=== PATIENT | female | born 2000 | race Caucasian/White ===

== ENCOUNTER 2019-11-12 11:16 | Outpatient (REF) | payer BC, SELFPAY ==
--- NOTE | 2019-11-12 10:35 | PAPFT_PTH ---
PATIENT: Huma Rodriguez LOC: [facility] U#:[id number] AGE/SX: 19/F ROOM: RE11/12/[address]: Daxa Russo RN : 2000 BED: DIS: 11/12/2019 SPEC #: [id number] RECD: 11/12/19 13:09 STATUS: MERVAT REArnaldo #: [id number] RUSTY: 11/12/19 10:[address]: Daxa Russo DEPT: [facility] Cytology RECD BY: Veronika Quijano ENTERED: 11/12/19 13:09 SP TYPE: PAPFT MATEUSZ DR: None Tissues: 1 - CX/ENDOCX FOR PAP SMEARS Procedures: PAP THIN PREP/UVM Screening HPV DNA PROBE Comments: [id number]
[2019-11-12 13:35] LABS: *AMPHETAMINES SCREEN URINE Negative (Negative); *BARBITURATES SCREEN URINE Negative (Negative); *BENZODIAZEPINES SCREEN URINE Negative (Negative); Cannabinoids THC Negative (Negative); Cocaine Screen,Urine Negative (Negative); METHADONE URINE SCREEN Negative (Negative); OPIATES URINE SCREEN Negative (Negative); Tricyclic Antidepressants Negative (Negative)
[2019-11-13 15:31] LABS: Chlamydia Result Negative (Negative); GC Result Negative (Negative)
[2019-11-16 11:58] LABS: Buprenorphine Negative; Norbuprenorphine Negative
== END 2019-11-12 11:36 ==
LOC: LBN 11:16
PROVIDERS: Visit Provider Advanced Practice Midwife
DX: R87.610 Atypical squamous cells of undetermined significance on cytologic smear of cervix (ASC-US) (principal); R87.810 Cervical high risk human papillomavirus (HPV) DNA test positive; Z34.91 Encounter for supervision of normal pregnancy, unspecified, first trimester
CPT/HCPCS: 80307; 87491; 87591; 88142; 87086; 87624

== ENCOUNTER 2019-11-14 05:29 | Outpatient (CLI) | payer BC, SELFPAY ==
[2019-11-14 08:39] LABS: Abs Immature Grans 0.02 10^3/uL (0.0-0.06); Absolute Basophil Count 0.01 10^3/uL (0.0-0.2); Absolute Eosinophil Count 0.15 10^3/uL (0.0-0.7); Absolute Lymphocyte Count 2.05 10^3/uL (1.2-3.4); Absolute Neutrophil Count 4.91 10^3/uL (1.2-6.7); Basophils % 0.1; HCT 35.1 % (36.0-46.0); HGB 12.4 g/dL (11.2-15.7); Immature Grans % 0.3; Lymphocytes % 26.8; MCHC 35.3 % (32.0-36.0); MPV 10.3 fL (8.0-11.0); Monocytes % 6.5; Neutrophils % 64.3; Nucleated RBC 0 %; Platelet Count 221 10^3/uL (130-400); RBC 4.13 10^6/uL (3.93-5.22); RDW 12.5 % (11.7-14.6); RDW-SD 38.2 fL; WBC 7.64 10^3/uL (4.4-10.8)
[2019-11-15 09:56] LABS: Hepatitis B Surface Ag Negative (Negative)
[2019-11-15 10:47] LABS: Varicella IgG Antibody Positive (See Note)
[2019-11-15 10:50] LABS: Rubella IgG Ab (UVM) Positive (See Note)
[2019-11-15 10:53] LABS: HIV-1/2 Ag & Ab Screen Negative (Negative)
[2019-11-15 11:10] LABS: Hepatitis C Ab w Rflx HCV PCR Negative (Negative)
[2019-11-16 14:30] LABS: Syphilis Total Ab w/Reflex Nonreactive (Nonreactive)
== END 2019-11-14 05:49 ==
PROVIDERS: Visit Provider Advanced Practice Midwife
DX: Z34.91 Encounter for supervision of normal pregnancy, unspecified, first trimester (principal); Z11.4 Encounter for screening for human immunodeficiency virus [HIV]; Z11.59 Encounter for screening for other viral diseases; Z01.84 Encounter for antibody response examination
CPT/HCPCS: 86787; 86803; 86850; 86900; 86901; 87340; 87389; 84443; 85025; 86762; 86780

== ENCOUNTER 2019-12-24 00:45 | Outpatient (CLI) | payer BC, SELFPAY ==
--- NOTE | 2019-12-24 07:00 | DI.US_ITS ---
EXAM: US OB 2-3 TRIMESTER W MOD CLINICAL HISTORY: routine pnc,Z34.90 TECHNIQUE: Ultrasound performed using standard protocol. COMPARISON: No exams were available for comparison FINDINGS: Ob ultrasound was performed utilizing 2nd trimester protocol. biometry is consistent with gest ational age of 18 weeks 2 days and an EDC of May 24, 2020. Placenta is posterior with no placenta previa. There is visually a normal quantity of amniotic fluid. anomaly screen is within normal limits as per the attached checklist. Please note that the fac ial structures were not well visualized and the patient will return for additional scanning. heart rate, 152 BPM. IMPRESSION: DATA REPOSITORY:
== END 2019-12-24 01:05 ==
PROVIDERS: Visit Provider Advanced Practice Midwife
DX: Z34.92 Encounter for supervision of normal pregnancy, unspecified, second trimester (principal)
CPT/HCPCS: 76805

== ENCOUNTER 2020-01-15 00:52 | Outpatient (CLI) | payer BC, SELFPAY ==
--- NOTE | 2020-01-15 | DI.US_ITS ---
EXAM: US OB F/U FACIAL/LVOT/RVOT CLINICAL HISTORY: F/U PREV,TO VIEW FACIAL STRUCTURES TECHNIQUE: Ultrasound performed using standard protocol. COMPARISON: US US OB 2-3 TRIMESTER W MOD from 12/24/2019 FINDINGS: Limited Ob ultrasound was performed to follow prior 2nd trimester ultrasound on which nose and lips w ere not well visualized. On today's examination nose and lips are visualized and unremarkable in appearance. Question had bee n raised of a small left choroid plexus cyst on prior examination, and this is not seen on today's ex amination. heart rate was 149 BPM. Again, there is a normal quantity of amniotic fluid, and placenta is posterior with no placenta previ a. IMPRESSION: DATA REPOSITORY:
== END 2020-01-15 01:12 ==
PROVIDERS: Visit Provider Advanced Practice Midwife
DX: Z34.92 Encounter for supervision of normal pregnancy, unspecified, second trimester (principal); O28.3 Abnormal ultrasonic finding on antenatal screening of mother
CPT/HCPCS: 76815

== ENCOUNTER 2020-03-10 05:11 | Outpatient (CLI) | payer SELFPAY ==
[2020-03-10 09:39] LABS: HCT 33.7 % (36.0-46.0); HGB 11.5 g/dL (11.2-15.7); MCH 29.9 pg (27.0-33.0); MCHC 34.1 % (32.0-36.0); MCV 87.8 fL (80-95); Platelet Count 213 10^3/uL (130-400); RBC 3.84 10^6/uL (3.93-5.22); RDW 12.8 % (11.7-14.6); RDW-SD 40.4 fL; WBC 7.59 10^3/uL (4.4-10.8)
[2020-03-10 09:46] LABS: Glucose,1 Hr (Glucola) 121 mg/dL (80-140)
== END 2020-03-10 05:31 ==
PROVIDERS: Visit Provider Advanced Practice Midwife
DX: Z34.93 Encounter for supervision of normal pregnancy, unspecified, third trimester (principal); Z3A.28 28 weeks gestation of pregnancy
CPT/HCPCS: 36415; 82950; 85027

== ENCOUNTER 2020-04-29 13:21 | Outpatient (REF) | payer BC, SELFPAY ==
[2020-04-29 14:46] LABS: *AMPHETAMINES SCREEN URINE Negative (Negative); *BARBITURATES SCREEN URINE Negative (Negative); *BENZODIAZEPINES SCREEN URINE Negative (Negative); Cannabinoids THC Negative (Negative); Cocaine Screen,Urine Negative (Negative); METHADONE URINE SCREEN Negative (Negative); OPIATES URINE SCREEN Negative (Negative)
[2020-04-29 14:51] LABS: Tricyclic Antidepressants Negative (Negative)
[2020-05-06 13:19] LABS: Buprenorphine Negative ng/mL (Cutoff: 5.0); Norbuprenorphine Negative ng/mL (Cutoff: 2.5)
== END 2020-04-29 13:22 | disposition home or self-care (01) ==
LOC: LBN 13:21
PROVIDERS: Visit Provider Advanced Practice Midwife
DX: Z34.93 Encounter for supervision of normal pregnancy, unspecified, third trimester (principal); Z36.85 Encounter for antenatal screening for Streptococcus B; Z3A.36 36 weeks gestation of pregnancy
CPT/HCPCS: 80307; 87081

== ENCOUNTER 2020-06-04 06:56 | Inpatient (IN) | payer BC, SELFPAY ==
[2020-06-04] VITALS (18 sets, daily range): BP systolic 128–160; BP diastolic 74–104; PULSE 80–125; RESP 12–18; TEMP 36.7–37.9; O2SAT 97
--- NOTE | 2020-06-04 08:10 | W.PM.OBHPL1 ---
Date of service: 06/04/20 Time of Service: 08:10 Assessment and Plan Assessment and plan (1) Spontaneous onset of labor: Status: Acute Assessment and plan: Admit to Center. Comfort measures. Huma had planned to use the tub for comfort. Report to Bean walters who will be assuming her care at 0800. Covid- 19 test. Anticipate . OB-HPI Labor/Delivery History of Present Illness Reason for Visit: RULE OUT LABOR Chief Complaint: Uterine Contractions. TIKI Calculator Estimated Delivery Date Method Current WG Current Estimate 05/28/20 Ultrasound #1 41w 0d Other Estimates 05/25/20 LMP (Uncertain) 41w 3d Comments: Huma reports regular contractions all night. They became stronger at 0600 and she presents in active labor. SVE by RN. History of Present Expected Delivery Route/Plan - CNM FOB/boyfriend - Ben Covarrubias (his first child) BB Aditya, no circ Would like to use the tub for comfort. GBS negative Specific Issues/Plan 1. Declines all optional screening tests, declination signed. 2. pap ASCUS HPV + repeat pap pp.al 3. Limited facial views by US - repeat US scheduled- normal face views/no evidence of CP cyst PFSH Medical History (Updated 06/04/20 @ 08:12 by Betzaida Ibarra CNM) ASCUS with positive high risk HPV Family History Mother No problems noted. Father No problems noted. Other Heart disease Grandparent Hyperlipidemia Social History (Updated 11/12/19 @ 09:37 by Daxa Russo CNM) Smoking/Tobacco Use Status: Never Second Hand Exposure: Yes (reviewed fact smoking outside is no longer a safe practice to deter risks.) Counseling given: provider counseling Smoking risk assessment performed?: Yes Female Reproductive History Menstrual control method: none History History 1 Para 0 Hx # Term Pregnancies 0 Multiple births 0 Hx # Pregnancies 0 Ectopic pregnancies 0 AB induced 0 Hx Number of Living Children 0 AB spontaneous 0 Meds Allergies and Home Medications Allergies Allergy/AdvReac Type Severity Reaction Status Date / Time No Known Allergies Allergy Unverified 05/28/20 08:54 Home Medications Medication Instructions Recorded Confirmed Type prenat.vits,niesha,dpj-bbau-kjxmp 1 tab PO DAILY 09/26/19 01/16/20 History Exam Physical Exam Vital signs: Temp Pulse Resp BP 98.6 F 98 H 12 132/100 H 06/04/20 07:16 06/04/20 07:16 06/04/20 07:16 06/04/20 07:16 Vital Signs Reviewed: Yes Detailed Labor and Delivery Exam Dilation: 4 Effacement (%): 90 Nguyen Score: Cervical Points Exam 0 1 2 3 Dilation Closed 1-2cm 3-4 cm 5-6cm Effacement 0-30% 40-50% 60-70% 80% Consistency Firm Medium Soft Station -3 -2 -1,0 +1,+2 Position Posterior Mid Anterior Amniotic Membrane Status: Intact Contraction Intensity: Mild/Moderate Fetus A Heart Rate Baseline: 120 Monitor Accelerations: 15 X 15 Monitor Decelerations: None Variability: Moderate (6-25 BPM) Presentation: Cephalic Categories: Category I Risk Assessment Risk for Shoulder Dystocia Historical/Initial OB: NEGATIVE FOR: Pelvic Abnormality, Pre- BMI>30, Previous Shoulder Dystocia or Previous Macrosomia 40 Weeks: POSTIVE FOR: Post Dates; NEGATIVE FOR: EFW> 4500 gms or Maternal Weight Gain >40lb Increased Risk?: No Delivery Plan @ 36wks: spont labor, Delivery Plan @ 40 wks: spont labor, , 41 wk appt made Risk for Pre-Eclampsia Date Initiated/Initials: 11/12/19 al Yes, if one or more: NEGATIVE FOR: Hx Pre-E/Gest HTN, Chronic HTN, Multiple Gestation, Pre-gestational DM, Renal Disease, Systemic Lupus or APA Syndrome Yes, if 2 or more: POSITIVE FOR: Nulliparity; NEGATIVE FOR: Age>= 35 yrs, >10yr btwn pregnancies, BMI>30, ethinicty, Mother/Sister w/ Pre-E or Previous IUGR Risk for Post- Hemorrhage Initial: NEGATIVE FOR: Multiple Gestation, Previous PPH, Known Clotting Deficiency, Grand Multiparity or Anticoagulation Risks Reviewed Risks Reviewed Upon Admission: Yes
[2020-06-04 08:41] LABS: HCT 32.2 % (36.0-46.0); HGB 11.1 g/dL (11.2-15.7); MCH 28.5 pg (27.0-33.0); MCHC 34.5 % (32.0-36.0); MCV 82.8 fL (80-95); MPV 11.3 fL (8.0-11.0); Platelet Count 207 10^3/uL (130-400); RBC 3.89 10^6/uL (3.93-5.22); RDW 13.2 % (11.7-14.6); RDW-SD 38.9 fL; WBC 12.26 10^3/uL (4.4-10.8)
--- NOTE | 2020-06-04 10:37 | W.PM.OBNL1 ---
Date of service: 06/04/20 Time of Service: 10:37 Pelvic Exam Dilation: 7 Effacement (%): 100 station: -2 Position: TYLER Cervix Position: mid Consistency: soft Contractions Monitor Mode: Palpation Contraction Frequency(min): every 2-4 minutes Intensity: Moderate/Strong Fetus A Monitor: Doppler Heart Rate Baseline: 135 Presentation: Cephalic FHR Rhythm: Regular Accelerations: Present Decelerations: None Amniotic Membrane Status: Intact Assessment and Plan Assessment and plan (1) Spontaneous onset of labor: Status: Acute Assessment and plan: A: primipara @ 41 wks, spont labor, active GBS neg, low risk Elevated BP noted with onset of labor P: Will draw pre-eclampsia labs with urine prot/creat ratio Monitor BP and review results with Dr. Renteria EFM tracing to assess category Anticipate (2) 41 weeks gestation of : Status: Acute (3) Elevated BP without diagnosis of hypertension: Status: Acute Objective Abnormal lab results 06/04/20 Range/Units 08:29 WBC 12.26 H (4.4-10.8) 10^3/uL RBC 3.89 L (3.93-5.22) 10^6/uL Hgb 11.1 L (11.2-15.7) g/dL Hct 32.2 L (36.0-46.0) % MPV 11.3 H (8.0-11.0) fL Temp Pulse Resp BP 99.1 F 98 H 12 148/101 H 06/04/20 10:31 06/04/20 07:16 06/04/20 07:16 06/04/20 10:31 Laboratory Results WBC 12.26 10^3/uL (4.4-10.8) H 06/04/20 08:29 RBC 3.89 10^6/uL (3.93-5.22) L 06/04/20 08:29 Hgb 11.1 g/dL (11.2-15.7) L 06/04/20 08:29 Hct 32.2 % (36.0-46.0) L 06/04/20 08:29 MCV 82.8 fL (80-95) 06/04/20 08:29 MCH 28.5 pg (27.0-33.0) 06/04/20 08:29 MCHC 34.5 % (32.0-36.0) 06/04/20 08: RDW 13.2 % (11.7-14.6) 06/04/20 08:29 Plt Count 207 10^3/uL (130-400) 06/04/20 08:29 MPV 11.3 fL (8.0-11.0) H 06/04/20 08:29 Patient ABO/Rh O Positive 06/04/20 08:29 Antibody Screen Negative 06/04/20 08:29 Vital Signs Reviewed: Yes Notable Details: Admission BP elevated 132/100, repeat 3 hrs later 148/101 Objective Narrative Objective Narrative: Pt appears to be coping well with contractions, supported by FOB Has ambulated and generally prefers to labor in the soaking tub No hx elevated BP during care, elevated BP noted this morning x2 Category 1 tracing upon admission, intermittent auscultation per protocol since then Afebrile, benign AP course Admission labs nml, COVID swab pending EFW 3500 gms Subjective Interval history since last seen: Contractions are frequent and most the pain is in her back, feels best when soaking in labor tub.
[2020-06-04 11:03] LABS: COVID-19 PCR Negative (Negative); Source Nasal/Nares
[2020-06-04 11:16] LABS: ALT 13 U/L (14-59); AST 14 U/L (15-37); Albumin 2.9 g/dL (3.4-5.0); Alkaline Phosphatase 228 U/L (46-116); Anion Gap 11.6 mmol/L (3-11); BUN 10 mg/dL (7-18); Bilirubin, Total 0.2 mg/dL (0.2-1.0); CO2 22.4 mmol/L (21.0-32.0); CREATININE 0.8 mg/dL (0.55-1.02); Calcium 8.9 mg/dL (8.5-10.1); Chloride 102 mmol/L (98-107); Glucose 87 mg/dL (74-106); Potassium 4.2 mmol/L (3.5-5.1); Sodium 136 mmol/L (136-145); Total Protein 6.2 g/dL (6.4-8.2); Uric Acid 7.1 mg/dL (2.6-6.0)
[2020-06-04 12:40] LABS: PROTEIN 112.4 mg/dL
[2020-06-04 12:48] LABS: COMMENT (LAB VIEW ONLY) 246.42 mg/dL; Prot/Crea Ur Ratio 0.45
--- NOTE | 2020-06-04 13:31 | PGE_ITS ---
Date of service: 06/04/20 Time of Service: 13:31 Contractions Monitor Mode: Palpation Contraction Frequency(min): every 2-4 minutes Intensity: Moderate/Strong Fetus A Monitor: Doppler Heart Rate Baseline: 135 Presentation: Cephalic FHR Rhythm: Regular Accelerations: Present Decelerations: None Assessment and Plan Assessment and plan (1) Pre-eclampsia affecting childbirth: Status: Acute (2) Spontaneous onset of labor: Status: Acute Assessment and plan: A: pre-eclampsia without severe features, intrapartum onset primipara in active labor, postpdates P: Discussed lab results and pt status with Dr. Renteria Will initiate IV access, EFM Anticipate (3) 41 weeks gestation of : Status: Acute Objective Abnormal lab results 06/04/20 06/04/20 Range/Units 08:29 08:29 WBC 12.26 H (4.4-10.8) 10^3/uL RBC 3.89 L (3.93-5.22) 10^6/uL Hgb 11.1 L (11.2-15.7) g/dL Hct 32.2 L (36.0-46.0) % MPV 11.3 H (8.0-11.0) fL Anion Gap 11.6 H (3-11) mmol/L Uric Acid 7.1 H (2.6-6.0) mg/dL AST 14 L (15-37) U/L ALT 13 L (14-59) U/L Alkaline Phosphatase 228 H (46-116) U/L Total Protein 6.2 L (6.4-8.2) g/dL Albumin 2.9 L (3.4-5.0) g/dL Temp Pulse Resp BP 98.1 F 90 12 148/84 H 06/04/20 12:13 06/04/20 10:57 06/04/20 07:16 06/04/20 12:13 Laboratory Results WBC 12.26 10^3/uL (4.4-10.8) H 06/04/20 08:29 RBC 3.89 10^6/uL (3.93-5.22) L 06/04/20 08:29 Hgb 11.1 g/dL (11.2-15.7) L 06/04/20 08:29 Hct 32.2 % (36.0-46.0) L 06/04/20 08:29 MCV 82.8 fL (80-95) 06/04/20 08: MCH 28.5 pg (27.0-33.0) 06/04/20 08: MCHC 34.5 % (32.0-36.0) 06/04/20 08:29 RDW 13.2 % (11.7-14.6) 06/04/20 08:29 Plt Count 207 10^3/uL (130-400) 06/04/20 08:29 MPV 11.3 fL (8.0-11.0) H 06/04/20 08:29 Sodium 136 mmol/L (136-145) 06/04/20 08:29 Potassium 4.2 mmol/L (3.5-5.1) 06/04/20 08: Chloride 102 mmol/L (98-107) 06/04/20 08:29 Carbon Dioxide 22.4 mmol/L (21.0-32.0) 06/04/20 08:29 Anion Gap 11.6 mmol/L (3-11) H 06/04/20 08:29 BUN 10 mg/dL (7-18) 06/04/20 08:29 Creatinine 0.8 mg/dL (0.55-1.02) 06/04/20 08:29 Estimated GFR/1.73 m2 >= 60.00 (mL/min/1.73m2) 06/04/20 08:29 Glucose 87 mg/dL (74-106) 06/04/20 08:29 Uric Acid 7.1 mg/dL (2.6-6.0) H 06/04/20 08:29 Calcium 8.9 mg/dL (8.5-10.1) 06/04/20 08:29 Total Bilirubin 0.2 mg/dL (0.2-1.0) 06/04/20 08:29 AST 14 U/L (15-37) L 06/04/20 08:29 ALT 13 U/L (14-59) L 06/04/20 08:29 Alkaline Phosphatase 228 U/L (46-116) H 06/04/20 08:29 Total Protein 6.2 g/dL (6.4-8.2) L 06/04/20 08:29 Albumin 2.9 g/dL (3.4-5.0) L 06/04/20 08:29 Ur Random Creatinine 246.42 mg/dL 06/04/20 11:45 U Random Total Protein 112.4 mg/dL 06/04/20 11:45 U [place] Prot/Creat Ratio 0.45 06/04/20 11:45 COVID-19 Source Nasal/nares 06/04/20 07:15 SARS-CoV-2 (PCR) Negative (Negative) 06/04/20 07:15 Patient ABO/Rh O Positive 06/04/20 08:29 Antibody Screen Negative 06/04/20 08:29 Vital Signs Reviewed: Yes Notable Details: see below Objective Narrative Objective Narrative: BP elevations remain consistently in mild range Pre-e lab results: LFT's are low/nml, plts 207, serum creat 0.8, uric acid 7.1 and prot/creat ratio at 0.45 Pt denies DAMON or RUQ pain, Pt has remained in tub, intermittent auscultation resumed after category 1 tracing verified @ noon FOB providing effective support, pt declines use of nitrous or narcotic analgesia Subjective Interval history since last seen: Reporting increased sensation of pelvic pressure at peak of contractions
[2020-06-04] MEDS: Normal Saline Flush 10 ML SYR IVP (14:03)
[2020-06-04] MEDS: Oxytocin/Normal Saline 30 UNITS/500 ML BAG 95 UNITS IV (14:20)
--- NOTE | 2020-06-04 14:32 | W.PM.OBNL1 ---
Date of service: 06/04/20 Time of Service: 14:32 Pelvic Exam Dilation: 9 station: 0 Vaginal Exam Presentation: Vertex Contractions Monitor Mode: External Contraction Frequency(min): e devon 3-4 minutes, sometimes doubles Contraction Duration(sec): 60-90 seconds Intensity: Strong Fetus A Monitor: External (US) Heart Rate Baseline: 125 Presentation: Vertex Variability: Moderate (6-25 BPM) Categories: Category I Accelerations: 15 X 15 Decelerations: None Amniotic Membrane Status: Ruptured (@ 1355) Rupture Method: Artifical Amniotic Fluid: Clear Date of Membrane Rupture: 06/04/20 Time of Membrane Rupture: 13:55 Assessment and Plan Assessment and plan (1) Pre-eclampsia affecting childbirth: Status: Acute (2) 41 weeks gestation of : Status: Acute (3) Spontaneous onset of labor: Status: Acute Assessment and plan: A: Primipara, pre-e without severe features Transition stage of active labor P: Anticipate precautions in place for increased risk of PPH Objective Vital Signs Reviewed: Yes Objective Narrative Objective Narrative: BP stable, IV access placed by RN in left hand Pt involuntarily shaking and occasionally pushing lightly AROM at 8/-1 of clear fluid and palpable descent of head to 0/+1 station Pt positioned LLP with support between knees, encouraged to rest between contractions Coping very well with pains, feeling rectal pressure Pt is advised that elevated BP requires more monitoring then can be done in water EFM tracing for category 1 tracing Subjective Interval history since last seen: Involuntary urges to bear down, feeling very shakey, wishes she could return to the tub but expresses understanding that her BP status makes birthing in the tub potentially unsafe. Results Hemoglobin/Hematocrit: Hgb 11.1 g/dL (11.2-15.7) L 06/04/20 08:29 Hct 32.2 % (36.0-46.0) L 06/04/20 08:29 Abnormal Lab Findings: Abnormal Labs 06/04/20 06/04/20 08:29 08:29 WBC 12.26 H RBC 3.89 L Hgb 11.1 L Hct 32.2 L MPV 11.3 H Anion Gap 11.6 H Uric Acid 7.1 H AST 14 L ALT 13 L Alkaline Phosphatase 228 H Total Protein 6.2 L Albumin 2.9 L
[2020-06-04] MEDS: Lactated Ringers 1,000 ML 125 ML IV (15:45)
[2020-06-04] MEDS: miSOPROStol 200 MCG TAB 800 MCG PO (16:25)
--- NOTE | 2020-06-04 17:46 | W.OBDELIVERY ---
Date of service: 06/04/20 Time of Service: 17:00 OB Labor/ Delivery Information Baby A Delivery Delivery Method: Spontaneaous Presentation: Vertex Cephalic Position: Vertex Vertex Position: Left Occipital Anterior Breech Position: N/A Cord Description-Baby A: 3 Vessels Amniotic Fluid: Clear Estimated Blood Loss: 450 Delivery Outcome: Liveborn Transferred: Remains with Mother Providers Nurse Tennis Court Attendant: Mine Wall Nurse: Sangeetha Odom Nurse: Amanda Figueredo Labor/Delivery Information Number of Babies in Womb: 1 Steroids Given: None Reason Steroids Not Administered: N/A Group Beta Strep: Negative Antibiotics Administered: No Rubella Status: Immune Blood Type: O+ Varicella Immunity: Immune Medication in Delivery: none Maternal Complications: Other (pre-eclampsia without severe features, intrapartum onset) Shoulder Dystocia: No Note: Pt left the labor tub and rested on bed, EFM applied for category 1, AROM @ 8cm of clear fluid, pt progressed to anterior lip/+2 and began pushing spontaneously, 2nd stage huddle completed, anterior lip reduced with pt pushing in LLP. Excellent maternal efforts resulted in in semifowlers of a vigorous male infant, loose nuchal cord reduced overhead and shoulders came easily, initial drying and bulb suction then baby placed in mother's arms. Pitocin bolus IV started, cord ceased pulsating and was clamped, cut by FOB at 5 minutes. [place] placenta intact with 3VC, 800 mcg miso given PO as prophylaxis to PPH. 2nd degree laceration with loose flap of perineal skin noted, steady bleeding from laceration observed, repair begun with local anesthesia and 3.0 Vicryl suture to vaginal floor but visualization was difficult. Dr. Renteria to bedside to assist with repair, further local anesthesia injected, laceration closed by MD with 3.0 Vicryl and perineal skin flap re-approximated to proper location with good cosmetic result and cessation of bleeding. Rectal capsule intact, fundus firm below umbilicus, cold pack applied to perineum, excellent family bonding observed and skin to skin maintained throughout repair. Apgars 8/9, weight 3810 gms Stages of Labor Onset of Labor Date: 06/03/20 Onset of Labor Time: 20:00 Complete Dilatation Date: 06/04/20 Complete Dilatation Time: 15:01 Labor - Stage 1 Duration: 24 hours and 0 minutes ROM Baby A: 06/04/20 ROM Baby A: 13:55 ROM Total Time- Baby A: [id number] Delivery Date-Baby A: 06/04/20 Delivery Time-Baby A: 16:16 Labor Stage 2 Duration: 1 hours and 15 minutes Placenta Delivery Date-Baby A: 06/04/20 Placenta Delivery Time-Baby A: 16:23 Labor-Stage 3 Duration: 7 minutes Total Length of Labor-Baby A: 20 hours and 16 minutes Placenta Status: Delivered Baby A Infant Gender: Male Gestational Status: Term (39-41.6 wks) Gestational Age in Weeks/Days: 41 Weeks and 0 Days weight: 8 lb 6.394 oz Weight Comment: 3810 gms Score-1 Minute Interval(Baby A) Heart Rate-1 minute: 100 BPM or Greater Respiratory Effort- 1 minute: Slow Respiration/Weak Cry Muscle Tone-1 minute: Active Movement Color-1 minute: Bluish Hands or Feet Score-5 Minute Interval(Baby A) Heart Rate- 5 minute: 100 BPM or Greater Respiratory Effort-5 minute: Spontaneous/Strong Cry Muscle Tone-5 minute: Active Movement Reflex Response-5 minute: Prompt Response Color-5 minute: Bluish Hands or Feet Procedure Procedures: Cord Blood Collection Interventions Repair of Laceration Type: Perineal , Laceration Extension: Second Degree . Sponge Count Correct: Yes , Sharp Count Correct: Yes . Laceration Repair Note: Dr. Renteria completed repair with 3.0 Vicryl and local anesthesia
[2020-06-04] MEDS: Acetaminophen 325 MG TAB 650 MG PO (18:02)
[2020-06-04] MEDS: Ibuprofen 600 MG TAB PO (19:42)
[2020-06-05 01:20] VITALS: BP 135/89; PULSE 90; RESP 18; TEMP 37.3; O2SAT 96
[2020-06-05] MEDS: Oxytocin/Normal Saline 30 UNIT/500 ML BAG 95 UNITS IV (01:30)
[2020-06-05] MEDS: Lidocaine 2% Jelly 6 ML SYR TP ×2 (05:19→20:46)
[2020-06-05 07:08] LABS: HCT 32.2 % (36.0-46.0); HGB 10.9 g/dL (11.2-15.7); MCH 28.4 pg (27.0-33.0); MCHC 33.9 % (32.0-36.0); MCV 83.9 fL (80-95); MPV 10.9 fL (8.0-11.0); Platelet Count 205 10^3/uL (130-400); RBC 3.84 10^6/uL (3.93-5.22); RDW 13.1 % (11.7-14.6); RDW-SD 39.6 fL; WBC 15.92 10^3/uL (4.4-10.8)
[2020-06-05 07:30] VITALS: BP 123/89; PULSE 88; RESP 16; TEMP 36.1; O2SAT 96
[2020-06-05] MEDS: Ibuprofen 600 MG TAB PO ×3 (11:30→23:51)
[2020-06-05] MEDS: Acetaminophen 325 MG TAB 650 MG PO ×3 (11:31→23:51)
--- NOTE | 2020-06-05 19:07 | W.PM.OBPNV1 ---
Date of service: 06/05/20 Time of Service: 13:07 Assessment and Plan Assessment and plan (1) Term delivered: Status: Acute Assessment and plan: A: PPD#1, nml recovery BP stable @ 123/89, No severe features P: Planning for discharge tomorrow Desires Depo injection prior to discharge Will review and give written instructions to pt F/up with BP check at 1 week, and in 2 & 6 wks (2) Pre-eclampsia affecting childbirth: Status: Acute Subjective Subjective Patient comments: Pain well controlled, Tolerating diet and Flatus present baby status: Doing well, Nursing well, Rooming in and Strong Bonding Observed [place] feeding status: Exclusively breast feeding Exam Physical Exam Vital signs: Temp Pulse Resp BP Pulse Ox 97.0 F L 88 16 123/89 96 06/05/20 07:30 06/05/20 07:30 06/05/20 07:30 06/05/20 07:30 06/05/20 07:30 Vital Signs Reviewed: Yes Constitutional Constitutional: no acute distress HEENT Exam HEENT Exam: Normal Neck Exam Neck Exam: Normal Breast Exam Bilateral: Breast Exam: Normal and Soft Nipple Exam: Normal and Uninjured Respiratory Exam Respiratory Exam: Normal Cardiovascular Exam Cardiovascular Exam: Normal Abdominal Exam Abdomen: Other (soft, nontender) Fundal Exam Fundus: Below Umbilicus and Firm Rectal Exam Rectal Exam: Hemmorhoids Exam Perineum: Bruising, Hemorrhoids and Repair Intact External: Present normal urethra appearance Extremities Exam Extremity Exam: Normal Back/Spine/Pelvis Exam Back Exam: Normal Skin Exam Skin Exam: Normal Neurological Exam Neurological Exam: Normal Psychiatric Exam Psychiatric Exam: Normal Results Abnormal Lab Findings: Abnormal Labs 06/04/20 06/04/20 06/05/20 08:29 08:29 06:55 WBC 12.26 H 15.92 H RBC 3.89 L 3.84 L Hgb 11.1 L 10.9 L Hct 32.2 L 32.2 L MPV 11.3 H Anion Gap 11.6 H Uric Acid 7.1 H AST 14 L ALT 13 L Alkaline Phosphatase 228 H Total Protein 6.2 L Albumin 2.9 L
[2020-06-05 19:50] VITALS: BP 125/90; PULSE 103; RESP 16; TEMP 36.7; O2SAT 97
[2020-06-06] VITALS: BP 126/81; PULSE 83; RESP 18; O2SAT 97
[2020-06-06 07:30] VITALS: BP 124/85; PULSE 78; RESP 14; TEMP 36.8
--- NOTE | 2020-06-06 07:44 | OBPPV_ITS ---
Date of service: 06/06/20 Time of Service: 07:44 Assessment and Plan Assessment and plan (1) Term delivered: Status: Acute Assessment and plan: A: PPD#2, nml recovery BP normal, pre-e resolving Satisfied with experience is going well P: Planning for discharge today Depo injection prior to discharge ordered Review and give written instructions to pt With nml serial BP's, no need for additional check F/up @ 2 & 6 wks, in-person Warning signs of pre-e reviewed with pt Pt states her family is supportive and her mother will help once she gets home (2) Pre-eclampsia affecting childbirth: Status: Acute Subjective Subjective Patient comments: No complaints, Pain well controlled, Tolerating diet and Flatus present baby status: Doing well, Nursing well, Rooming in and Strong Bonding Observed [place] feeding status: Exclusively breast feeding Exam Physical Exam Vital signs: Temp Pulse Resp BP Pulse Ox 98.0 F 83 18 126/81 97 06/05/20 19:50 06/06/20 00:00 06/06/20 00:00 06/06/20 00:00 06/06/20 00:00 Vital Signs Reviewed: Yes Constitutional Constitutional: no acute distress HEENT Exam HEENT Exam: Normal Neck Exam Neck Exam: Normal Breast Exam Bilateral: Breast Exam: Normal and Soft Respiratory Exam Respiratory Exam: Normal Cardiovascular Exam Cardiovascular Exam: Normal Abdominal Exam Abdomen: Other (soft, nontender) Fundal Exam Fundus: Below Umbilicus and Firm Rectal Exam Rectal Exam: Hemmorhoids Exam Perineum: Bruising, Hemorrhoids and Repair Intact External: Present normal urethra appearance Extremities Exam Extremity Exam: Normal Back/Spine/Pelvis Exam Back Exam: Normal Skin Exam Skin Exam: Normal Neurological Exam Neurological Exam: Normal Psychiatric Exam Psychiatric Exam: Normal
--- NOTE | 2020-06-06 07:49 | W.PM.OBDISCH ---
Date of service: 06/06/20 Time of Service: 07:49 DS: Diagnosis Discharge Diagnosis (1) Term delivered: Status: Acute (2) Pre-eclampsia affecting childbirth: Status: Acute Discharge Plan Disposition Patient Disposition: HOME Condition: Good Discharge Details Reason For Visit: RULE OUT LABOR Admit Date/Time: 06/04/20 08:06 Admit Provider: Betzaida Ibarra Attending Provider: Betzaida Ibarra Primary Care Provider: Unknown,Unknown Hospital Course Hospital Course: Pre-eclampsia without severe features noted during labor, of a healthy baby, nml course with steadily improving BP Home Meds and New Rx's Prescriptions: No Action prenat.vits,niesha,joa-pwxb-moabf Tablet 1 tab PO DAILY RF: 0 Discharge Instructions Additional Instructions: Please keep 2 & 6 week appointments with your auto mechanic. Please come in-person for both for BP monitoring and to make sure you are healing well. Call for any questions or concerns. Stand Alone Forms: BC Instructions, NB Instructions, BC Post Vaginal Deliver Activity:: Activity as Tolerated Equipment/Supplies:: No Equipment Needed Diet:: Normal Diet Discharge Orders Discharge Orders: Discharge Order (Routine); Ordered 06/06/20 Ordered By: Mine Wall OB:DS Summary Summary Vaginal Delivery Method: Spontaneaous Laceration Description: Perineal Laceration Extension: Second Degree Contraception Discussed Contraception Discussed: Yes Contraceptive Plan: Medroxyprogesterone, Gender-Baby A: Male weight: 8 lb 6.394 oz Status at Discharge Functional status at discharge: independent ambulation Overall status at discharge: patient is progressing back to baseline Mental Status: mental status grossly normal Speech and Movement: speech and movement normal and speech clear Mood: congruent mood Affect: normal affect Exam Physical Exam Vital signs: Temp Pulse Resp BP Pulse Ox 98.0 F 83 18 126/81 97 06/05/20 19:50 06/06/20 00:00 06/06/20 00:00 06/06/20 00:00 06/06/20 00:00 Constitutional Constitutional: no acute distress HEENT Exam HEENT Exam: Normal Neck Exam Neck Exam: Normal Breast Exam Bilateral: Breast Exam: Normal and Soft Respiratory Exam Respiratory Exam: Normal Cardiovascular Exam Cardiovascular Exam: Normal Abdominal Exam Abdomen: Other (soft, nontender) Fundal Exam Fundus: Below Umbilicus and Firm Rectal Exam Rectal Exam: Hemmorhoids Exam Perineum: Bruising, Hemorrhoids and Repair Intact External: Present normal urethra appearance Extremities Exam Extremity Exam: Normal Back/Spine/Pelvis Exam Back Exam: Normal Skin Exam Skin Exam: Normal Neurological Exam Neurological Exam: Normal Psychiatric Exam Psychiatric Exam: Normal [facility] Medical History (Updated 06/05/20 @ 19:09 by Mine Wall) ASCUS with positive high risk HPV Family History Mother No problems noted. Father No problems noted. Other Heart disease Grandparent Hyperlipidemia Social History (Updated 11/12/19 @ 09:37 by Daxa Russo CNM) Smoking/Tobacco Use Status: Never Second Hand Exposure: Yes (reviewed fact smoking outside is no longer a safe practice to deter risks.) Counseling given: provider counseling Smoking risk assessment performed?: Yes Female Reproductive History Menstrual control method: none History History 1 Para 0 Hx # Term Pregnancies 0 Multiple births 0 Hx # Pregnancies 0 Ectopic pregnancies 0 AB induced 0 Hx Number of Living Children 0 AB spontaneous 0 DS: Data Vitals/I&O Vitals and I&O: Vital Signs Temperature 98.0 F 06/05/20 19:50 Pulse 83 06/06/20 00:00 Pulse Rhythm Regular 06/06/20 00:00 Respiratory Rate 18 06/06/20 00:00 Respiratory Depth Normal 06/05/20 20:01 Blood Pressure 126/81 06/06/20 00:00 Blood Pressure Mean 96 06/06/20 00:00 Pulse Oximetry 97 06/06/20 00:00 Pain Level 2 06/06/20 00:51 Comment 06/04/20 19:50 Intake & Output 06/05/20 06/05/20 06/06/20 11:59 23:59 11:59 Intake Total 500 / 500 Balance 500 / 500 Intake: IV 500 / 500 Other: Urine Color Yellow
[2020-06-06] MEDS: Acetaminophen 325 MG TAB 650 MG PO (08:15)
[2020-06-06] MEDS: Ibuprofen 600 MG TAB PO (08:15)
== END 2020-06-06 12:00 | disposition home or self-care (01) | DRG 807 ==
PROVIDERS: Advanced Practice Midwife; Admitting Provider Advanced Practice Midwife; Visit Provider Advanced Practice Midwife
DX: O14.04 Mild to moderate pre-eclampsia, complicating childbirth (principal); Z37.0 Single live birth; Z3A.41 41 weeks gestation of pregnancy; O69.81X0 Labor and delivery complicated by cord around neck, without compression, not applicable or unspecified; O70.1 Second degree perineal laceration during delivery; Z20.822 Contact with and (suspected) exposure to COVID-19
CPT/HCPCS: 36415; 80053; 85027; 86850; 86900; 86901; 87635; 82565; 84156; 84550; G0378; J1050; J3490

== ENCOUNTER 2022-04-26 03:13 | Outpatient (CLI) | payer BC, SELFPAY ==
[2022-04-26 14:46] LABS: Abs Immature Grans 0.04 10^3/uL (0.0-0.06); Absolute Basophil Count 0.02 10^3/uL (0.0-0.2); Absolute Eosinophil Count 0.12 10^3/uL (0.0-0.7); Absolute Lymphocyte Count 2.89 10^3/uL (1.2-3.4); Absolute Monocyte Count 0.43 10^3/uL (0.1-0.8); Absolute Neutrophil Count 6.24 10^3/uL (1.2-6.7); Basophils % 0.2; Eosinophils % 1.2; HCT 36.8 % (36.0-46.0); Immature Grans % 0.4; Lymphocytes % 29.7; MCH 30.4 pg (27.0-33.0); MCHC 35.3 % (32.0-36.0); MCV 86 fL (80-95); Monocytes % 4.4; Neutrophils % 64.1; Platelet Count 232 10^3/uL (130-400); RBC 4.27 10^6/uL (3.93-5.22); RDW 13.2 % (11.7-14.6); RDW-SD 41.1 fL; WBC 9.74 10^3/uL (4.4-10.8)
[2022-04-26 15:22] LABS: ALT 19 U/L (14-59); AST 11 U/L (15-37); Albumin 3.8 g/dL (3.4-5.0); Alkaline Phosphatase 66 U/L (46-116); Anion Gap 10.7 mmol/L (3-11); BUN 9 mg/dL (7-18); Bilirubin, Total 0.3 mg/dL (0.2-1.0); CO2 24.3 mmol/L (21.0-32.0); CREATININE 0.5 mg/dL (0.55-1.02); Chloride 102 mmol/L (98-107); Estimated GFR 134.23 (mL/min/1.73m2); Glucose 88 mg/dL (74-106); Potassium 3.4 mmol/L (3.5-5.1); Sodium 137 mmol/L (136-145); Total Protein 7.3 g/dL (6.4-8.2)
[2022-04-27 10:07] LABS: Hepatitis B Surface Ag Negative (Negative)
[2022-04-27 10:16] LABS: Varicella IgG Antibody Positive (See Note)
[2022-04-27 10:20] LABS: Rubella IgG Ab (UVM) Positive (See Note)
[2022-04-27 10:43] LABS: Hepatitis C Ab w Rflx HCV PCR Negative (Negative)
[2022-04-27 10:47] LABS: HIV-1/2 Ag & Ab Screen Negative (Negative)
[2022-04-28 15:26] LABS: Syphilis IgG w/Reflex Nonreactive (Nonreactive)
== END 2022-04-26 03:14 | disposition home or self-care (01) ==
LOC: LBO 03:13
PROVIDERS: Visit Provider Advanced Practice Midwife
DX: Z34.91 Encounter for supervision of normal pregnancy, unspecified, first trimester (principal); Z3A.11 11 weeks gestation of pregnancy
CPT/HCPCS: 36415; 80053; 86787; 86803; 86850; 86900; 86901; 87340; 87389; 85025; 86762; 86780

== ENCOUNTER 2022-04-26 16:09 | Outpatient (REF) | payer BC, SELFPAY ==
--- NOTE | 2022-04-26 | PAPFT_PTH ---
PATIENT: Huma Rodriguez LOC: [facility] U#:[id number] AGE/SX: 22/F ROOM: RE04/26/[address]: Farhana Wall CNM : 2000 BED: DIS: 04/26/2022 SPEC #: [id number] RECD: 04/26/22 17:19 STATUS: MERVAT REArnaldo #: [id number] RUSTY: 04/26/22 00:[address]: Farhana Wall DEPT: [facility] Cytology RECD BY: Veronika Quijano Tissues: 1 - CX/ENDOCX FOR PAP SMEARS Procedures: PAP THIN PREP/UVM Screening Comments: [id number] (CHLAMYDIA/GC)
[2022-04-27 13:19] LABS: Chlamydia Result Negative (Negative); GC Result Negative (Negative)
== END 2022-04-26 16:10 | disposition home or self-care (01) ==
LOC: LBN 16:09
PROVIDERS: Visit Provider Advanced Practice Midwife
DX: Z34.91 Encounter for supervision of normal pregnancy, unspecified, first trimester (principal); Z11.3 Encounter for screening for infections with a predominantly sexual mode of transmission; Z12.4 Encounter for screening for malignant neoplasm of cervix; Z3A.11 11 weeks gestation of pregnancy; Z87.42 Personal history of other diseases of the female genital tract
CPT/HCPCS: 87491; 87591; 88142; 87086

== ENCOUNTER 2022-08-19 03:03 | Outpatient (CLI) | payer BC, SELFPAY ==
[2022-08-19 10:05] LABS: HCT 30.7 % (36.0-46.0); HGB 10.9 g/dL (11.2-15.7); MCH 30.7 pg (27.0-33.0); MCHC 35.5 % (32.0-36.0); MCV 87 fL (80-95); MPV 10.3 fL (8.0-11.0); Platelet Count 187 10^3/uL (130-400); RBC 3.55 10^6/uL (3.93-5.22); RDW 13.4 % (11.7-14.6); RDW-SD 41.6 fL; WBC 8.72 10^3/uL (4.4-10.8)
[2022-08-19 10:14] LABS: Glucose,1 Hr (Glucola) 112 mg/dL (80-140)
[2022-08-19 10:38] LABS: ALT 9 U/L (14-59); AST 13 U/L (15-37); Albumin 2.9 g/dL (3.4-5.0); Alkaline Phosphatase 99 U/L (46-116); Anion Gap 9.9 mmol/L (3-11); BUN 6 mg/dL (7-18); Bilirubin, Total 0.3 mg/dL (0.2-1.0); CO2 25.1 mmol/L (21.0-32.0); CREATININE 0.5 mg/dL (0.55-1.02); Calcium 8.4 mg/dL (8.5-10.1); Chloride 104 mmol/L (98-107); Estimated GFR 134.23 (mL/min/1.73m2); Glucose 107 mg/dL (74-106); Potassium 3.4 mmol/L (3.5-5.1); Sodium 139 mmol/L (136-145); Total Protein 6.4 g/dL (6.4-8.2)
== END 2022-08-19 03:04 | disposition home or self-care (01) ==
LOC: LBO 03:03
PROVIDERS: Visit Provider Advanced Practice Midwife
DX: Z34.93 Encounter for supervision of normal pregnancy, unspecified, third trimester (principal); Z87.59 Personal history of other complications of pregnancy, childbirth and the puerperium; Z3A.28 28 weeks gestation of pregnancy
CPT/HCPCS: 36415; 80053; 82950; 85027

== ENCOUNTER 2022-08-19 12:21 | Outpatient (REF) | payer BC, SELFPAY ==
[2022-08-19 14:03] LABS: *AMPHETAMINES SCREEN URINE Negative (Negative); *BARBITURATES SCREEN URINE Negative (Negative); *BENZODIAZEPINES SCREEN URINE Negative (Negative); Cannabinoids THC Negative (Negative); Cocaine Screen,Urine Negative (Negative); METHADONE URINE SCREEN Negative (Negative); OPIATES URINE SCREEN Negative (Negative)
[2022-08-19 14:04] LABS: Tricyclic Antidepressants Negative (Negative)
[2022-08-25 23:23] LABS: Buprenorphine Negative ng/mL (Cutoff: 5.0); Norbuprenorphine Negative ng/mL (Cutoff: 2.5)
== END 2022-08-19 12:22 | disposition home or self-care (01) ==
LOC: LBN 12:21
PROVIDERS: Visit Provider Advanced Practice Midwife
DX: Z34.91 Encounter for supervision of normal pregnancy, unspecified, first trimester (principal)
CPT/HCPCS: 80307; 80348

== ENCOUNTER 2022-09-30 04:54 | Outpatient (RCR) | payer BC, SELFPAY ==
[2022-09-24] MEDS: IRON SUCROSE COMPLEX 200 MG in Normal Saline 100 ML 440 MG IVPB (14:18)
[2022-09-24] MEDS: Normal Saline Flush 10 ML SYR IVP (14:21)
[2022-09-30 12:06] LABS: HGB 11.6 g/dL (11.2-15.7)
[2022-09-30] MEDS: Normal Saline Flush 10 ML SYR IVP (12:14)
== END 2022-10-14 23:59 | disposition home or self-care (01) ==
LOC: INF 04:54
PROVIDERS: Visit Provider Advanced Practice Midwife
DX: O99.019 Anemia complicating pregnancy, unspecified trimester (principal)
CPT/HCPCS: 36415; 96365; 85018; J1756

== ENCOUNTER 2022-10-14 11:37 | Outpatient (REF) | payer BC, SELFPAY ==
[2022-10-14 15:58] LABS: *AMPHETAMINES SCREEN URINE Negative (Negative); *BARBITURATES SCREEN URINE Negative (Negative); *BENZODIAZEPINES SCREEN URINE Negative (Negative); Cannabinoids THC Negative (Negative); Cocaine Screen,Urine Negative (Negative); METHADONE URINE SCREEN Negative (Negative); OPIATES URINE SCREEN Negative (Negative)
[2022-10-14 16:02] LABS: Tricyclic Antidepressants Negative (Negative)
[2022-10-22 18:23] LABS: Buprenorphine Negative ng/mL (Cutoff: 5.0)
== END 2022-10-14 11:38 | disposition home or self-care (01) ==
LOC: LBN 11:37
PROVIDERS: Visit Provider Advanced Practice Midwife
DX: Z34.93 Encounter for supervision of normal pregnancy, unspecified, third trimester (principal)
CPT/HCPCS: 80307; 80348; 87081

== ENCOUNTER 2022-10-25 14:38 | Outpatient (CLI) | payer BC, SELFPAY ==
[2022-10-25 14:49] VITALS: BP 116/74; PULSE 69; TEMP 37.1
[2022-10-25 14:59] VITALS: BP 116/74; PULSE 69
--- NOTE | 2022-10-25 16:03 | W.OBNST ---
Date of service: 10/25/22 Time of Service: 15:00 NST Evaluation Reason for NST Reasons for Nonstress Test: OTHER, SEE COMMENT Reason for NST Other: low fhr on doppler in office Gestational Age Gestational Age in Weeks and Days: 37 Weeks and 5Days Test and Monitor Explained Test/Monitor Explained: Test Explained, Monitor Explained and Patient Verbalized Understanding Vital Signs Blood Pressure: 116/74 Pulse: 69 Temperature: 98.8 F NST Information Date on Monitor: 10/25/22 Time on Monitor: 14:46 Date off Monitor: 10/25/22 Time off Monitor: 15:09 Total Time on Monitor: 23 NST Interventions: PO Hydration Contraction Frequency: 0 NST Evaluation Patient States Movement: Present FHR Baseline: 120 Variability: Moderate 6-25 bpm Accelerations: 15x15 Decelerations: None NST Results: Reactive Note Ultrasound Done: N/A. NST Note Note: NST is reactive and reassuring. NST Reviewed and Verified by: Betzaida Robbins
[2022-10-25 16:04] VITALS: BP 116/74; PULSE 69; TEMP 37.1
== END 2022-10-25 15:12 | disposition home or self-care (01) ==
LOC: BCD 14:45 → OBS 14:47
PROVIDERS: Visit Provider Advanced Practice Midwife
DX: O36.8331 Maternal care for abnormalities of the fetal heart rate or rhythm, third trimester, fetus 1 (principal); Z3A.37 37 weeks gestation of pregnancy
CPT/HCPCS: 59025

== ENCOUNTER 2022-10-28 19:14 | Outpatient (CLI) | payer BC, SELFPAY ==
[2022-10-28 19:46] VITALS: BP 125/85; PULSE 83
[2022-10-28 20:01] VITALS: BP 125/85; PULSE 83; TEMP 36.7
[2022-10-28] MEDS: Butalbital/Acetaminophen/Caffeine 50/325/40 TAB PO (20:36)
[2022-10-28] MEDS: Ondansetron O.D.T. 4 MG TABEF PO (20:36)
[2022-10-28 20:44] VITALS: BP 117/74; PULSE 75
--- NOTE | 2022-10-28 20:54 | W.OBNST ---
Date of service: 10/28/22 Time of Service: 20:54 NST Evaluation Reason for NST Reasons for Nonstress Test: OTHER, SEE COMMENT Reason for NST Other: Visual changes and headache reported by pt Gestational Age Gestational Age in Weeks and Days: 38 Weeks and 1Days Test and Monitor Explained Test/Monitor Explained: Test Explained, Monitor Explained and Patient Verbalized Understanding Vital Signs Blood Pressure: 125/85 Pulse: 83 Temperature: 98.1 F Urine Results Urine Protein: Negative Urine Ketones: Negative Urine Glucose: Negative Urine Blood: Negative NST Information Date on Monitor: 10/28/22 Time on Monitor: 19:44 Date off Monitor: 10/28/22 Time off Monitor: 20:10 Total Time on Monitor: 26 NST Interventions: PO Hydration and Notify Provider Contraction Frequency: Occasional NST Evaluation Patient States Movement: Present FHR Baseline: 125 Variability: Moderate 6-25 bpm Accelerations: 15x15 Decelerations: None NST Results: Reactive Note Ultrasound Done: N/A. NST Note Note: Huma called and reported right-sided neck pain and headache since 4:30 PM with one episode of loss of vision in her left eye. She reports a history of migraine headaches which are similar. Reactive NST. neg proteinuria. She appears to be well hydrated. She denies abdominal pain or edema. Mild nausea with one epidose of vomiting this morning. Tolerating PO fluid well. BP 125/85 and 117/74 Lungs clear and equal, Heart regular rate and rhythm. Plan - I offered zofran ODT 4 mg and fioricet tablet and she took those. I recommended going home to bed and to call if no improvement in 2 hours. rest and adequate fluids recommended and avoiding screens. NST Reviewed and Verified by: Betzaida Ibarra
[2022-10-28 21:01] VITALS: BP 125/85; PULSE 83; TEMP 36.7
[2022-10-29 13:19] VITALS: BP 103/65; PULSE 97
== END 2022-10-28 21:05 | disposition home or self-care (01) ==
LOC: BCD 19:17 → OBS 19:43 → BCD 19:44 → OBS 19:51
PROVIDERS: Visit Provider Advanced Practice Midwife
DX: O26.893 Other specified pregnancy related conditions, third trimester (principal); R51.9 Headache, unspecified; Z3A.38 38 weeks gestation of pregnancy
CPT/HCPCS: 59025

== ENCOUNTER 2022-10-29 10:30 | Outpatient (CLI) | payer BC, SELFPAY ==
[2022-10-29 13:17] VITALS: BP 120/83; PULSE 76; TEMP 36.6
[2022-10-29 13:35] VITALS: BP 120/83; PULSE 76
[2022-10-29 13:56] LABS: HCT 31.3 % (36.0-46.0); MCH 29.6 pg (27.0-33.0); MCHC 35.1 % (32.0-36.0); MCV 84 fL (80-95); MPV 10.7 fL (8.0-11.0); Platelet Count 173 10^3/uL (130-400); RBC 3.72 10^6/uL (3.93-5.22); RDW 13.4 % (11.7-14.6); RDW-SD 40.9 fL; WBC 7.65 10^3/uL (4.4-10.8)
[2022-10-29 14:16] LABS: ALT 9 U/L (14-59); AST 10 U/L (15-37); Albumin 2.8 g/dL (3.4-5.0); Alkaline Phosphatase 247 U/L (46-116); Anion Gap 10.5 mmol/L (3-11); BUN 5 mg/dL (7-18); Bilirubin, Total 0.3 mg/dL (0.2-1.0); CO2 23.5 mmol/L (21.0-32.0); CREATININE 0.7 mg/dL (0.55-1.02); Calcium 9.6 mg/dL (8.5-10.1); Chloride 103 mmol/L (98-107); Estimated GFR 123.78 (mL/min/1.73m2); Glucose 88 mg/dL (74-106); LDH 163 U/L (81-234); Potassium 3.5 mmol/L (3.5-5.1); Sodium 137 mmol/L (136-145); Total Protein 6.2 g/dL (6.4-8.2); Uric Acid 7.3 mg/dL (2.6-6.0)
[2022-10-29 14:49] LABS: COMMENT (LAB VIEW ONLY) 22.35 mg/dL; PROTEIN < 6.0 mg/dL
--- NOTE | 2022-10-29 15:29 | W.OBNST ---
Date of service: 10/29/22 Time of Service: 14:00 NST Evaluation Reason for NST Reasons for Nonstress Test: OTHER, SEE COMMENT Reason for NST Other: headaches Gestational Age Gestational Age in Weeks and Days: 38 Weeks and 2Days Test and Monitor Explained Test/Monitor Explained: Test Explained, Monitor Explained and Patient Verbalized Understanding Vital Signs Blood Pressure: 120/83 Pulse: 76 Temperature: 97.9 F NST Information Date on Monitor: 10/29/22 Time on Monitor: 13:15 Date off Monitor: 10/29/22 Time off Monitor: 14:30 Total Time on Monitor: 75 NST Interventions: PO Hydration NST Evaluation Patient States Movement: Present FHR Baseline: 110 Variability: Moderate 6-25 bpm Accelerations: 15x15 Decelerations: None NST Results: Reactive Note Ultrasound Done: N/A. NST Note Note: NST reactive, labs for pre-eclampsia done and reviewed with Dr. Mcgowan. Discharged to home with RX for Fioricet 1 tablet every 12 hours prn, #2 no refill. To call if symptoms worsen or to be seen in ED per Dr. Mcgowan. NST Reviewed and Verified by: Betzaida Robbins
[2022-10-29 15:30] VITALS: BP 120/83; PULSE 76; TEMP 36.6
== END 2022-10-29 15:10 | disposition home or self-care (01) ==
LOC: BCD 10:34 → OBS 13:12
PROVIDERS: Visit Provider Advanced Practice Midwife
DX: O26.893 Other specified pregnancy related conditions, third trimester (principal); R51.9 Headache, unspecified; Z3A.38 38 weeks gestation of pregnancy
CPT/HCPCS: 80053; 85027; 59025; 82565; 83615; 84156; 84550

== ENCOUNTER 2022-11-10 10:25 | Inpatient (IN) | payer BC, SELFPAY ==
[2022-11-10] VITALS (15 sets, daily range): BP systolic 115–138; BP diastolic 73–88; PULSE 62–88; RESP 16–18; TEMP 36.4–37
[2022-11-10 09:07] LABS: ROM Plus Positive
--- NOTE | 2022-11-10 10:41 | W.PM.OBHPL1 ---
Date of service: 11/10/22 Time of Service: 10:41 Assessment and Plan Assessment and plan (1) Premature rupture of membranes (PROM) at term with onset of labor after 24 hours, antepartum: Status: Acute Assessment and plan: 1. Admit, CBC and type and screen 2. NST and then intermittent doppler FHR 3. Will allow labor to increase and if not in active labor at 1200 will reassess to consider augmentation 4. Lo risk for SD, PPH, IV ordered prn. 5. Expect NVD. KH OB-HPI Labor/Delivery History of Present Illness Reason for Visit: Labor Chief Complaint: Suspected Rupture of Membranes (Gush of fluid at 0001 today clear and more fluid with movement since) , Associated Signs and Symptoms of Suspected ROM: no fluid on perineum, ROM + positive. TIKI Calculator Estimated Delivery Date Method Current WG Current Estimate 11/10/22 LMP (Certain) 40w 0d Other Estimates 11/13/22 Ultrasound #1 39w 4d History of Present Expected Delivery Route/Plan - CNM FOB/boyfriend - Alex Hartmann (first child) BB no circ Hopes to have a waterbirth GBS neg Specific Issues/Plan 1. FOB w/supraventricular tachycardia, takes propranolol, pt declines MFM consult 2. Pt's son may have autism, being seen @ [facility] [place] (different father) 3. Pt & FOB are not COVID vaccinated 4. Pt declines genetic screening tests 5. Advised low dose ASA @ 12 wks d/t gHTN during labor, CMP added to initial labs- CMP WNL 6. DAMON not completely relieved by Fioricet 1 dose 6a. Pre-eclampsia labs done 10/29, pro/creat not calcuable, Uric Acid 7.3,AST and ALT low 6b. Fioricet 1 every 12 hours prn DAMON #2 10/29/[address] Mcgowan Assessment: History Reviewed & Current Informed Consent Informed Consent: Other (expectant management and reassess at 1200 for augmentation if indicated) Review of Systems All systems reviewed & are unremarkable except as noted in HPI and below PFSH All Active Problems (Updated 11/10/22 @ 10:48 by Betzaida Robbins CNM) Premature rupture of membranes (PROM) at term with onset of labor after 24 hours, antepartum (Acute) Anemia affecting (Acute) History of nicotine vaping (Acute) (Acute) Nausea and vomiting in (Acute) Anxiety (Chronic) ASCUS with positive high risk HPV (Acute) Medical History History of gestational hypertension during spontaneous labor, resolved History of migraine Family History Mother No problems noted. Father No problems noted. Other Heart disease Grandparent Hyperlipidemia Social History Smoking/Tobacco Use Status: Former Tobacco Use tobacco type: e-cigarettes Second Hand Exposure: Yes (reviewed fact smoking outside is no longer a safe practice to deter risks.) Counseling given: provider counseling Smoking risk assessment performed?: Yes Female Reproductive History Menstrual control method: none History History 2 Para 1 Hx # Term Pregnancies 1 Multiple births 0 Hx # Pregnancies 0 Ectopic pregnancies 0 AB induced 0 Hx Number of Living Children 1 AB spontaneous 0 Past Pregnancies Del. Date GA/Weeks # Preg Succ Route Wgt Sex Labor Lgth Anesthesia Location Prov Complic 06/04/20 41 No Yes vaginal 8 lb 6.4 oz Male 20 hrs 16 min [facility] [place] Delivery Date: 06/04/20 Last Updated by: Farhana Wall spont labor, unmedicated, used tub, high BP during labor, 2nd degree repaired by Dr. Renteria in room. Meds Allergies and Home Medications Allergies Allergy/AdvReac Type Severity Reaction Status Date / Time No Known Allergies Allergy Verified 11/10/22 10:46 Home Medications Medication Instructions Recorded Confirmed Type prenat.vits,niesha,pcg-jzys-dadny 1 tab PO DAILY 09/26/19 11/10/22 History aspirin 81 mg tablet,delayed 81 mg PO DAILY #90 tabs 04/26/22 11/10/22 Rx release lezatvkzhx-tyxaadyuzodwu-flfeqgmm 1 cap PO Q12H PRN PRN pain #2 caps 10/29/22 11/10/22 Rx 50 mg-300 mg-40 mg capsule (Fioricet) Exam Physical Exam Vital signs: Pulse BP 62 118/76 11/10/22 10:33 09/27/23 10:33 Vital Signs Reviewed: Yes Constitutional Constitutional: no acute distress Detailed Labor and Delivery Exam Dilation: 4 Effacement (%): 90 station: -1 Position: TYLER Cervix position: posterior Consistency: soft Gonsalez Score: Cervical Points Exam 0 1 2 3 Dilation Closed 1-2cm 3-4 cm 5-6cm Effacement 0-30% 40-50% 60-70% 80% Consistency Firm Medium Soft Station -3 -2 -1,0 +1,+2 Position Posterior Mid Anterior GONSALEZ Score(Cervical Ripeness Score): 9 Rupture Method: Spontaneous Amniotic Fluid: Clear Contraction Frequency(min): Irregular Contraction Duration(sec): 60 Contraction Intensity: Moderate Fetus A Heart Rate Baseline: 130 Monitor Accelerations: Present (on initial NST, currently using doppler intermittent) Variability: Moderate (6-25 BPM) (on initial NST) Categories: Category I Est. Weight: 8 lb Date of Membrane Rupture: 11/10/22 Time of Membrane Rupture: 00:01 HEENT Exam HEENT Exam: Normal Neck Exam Neck Exam: Normal (visual exam) Chest/Brest/Axilla Exam Chest Exam: Normal Breast Exam Breast Exam: Not Done Respiratory Exam Respiratory Exam: Normal Cardiovascular Exam Cardiovascular Exam: Normal Abdominal Exam Abdominal Exam: Normal (gravid uterus, size equals dates) Rectal Exam Rectal Exam: Not Done Exam Exam: Normal Extremities Exam Extremities Exam: Normal Back/Spine/Pelvis Exam Pelvis Adequate: Yes Skin Exam Skin Exam: Normal Neurological Exam Neurological Exam: Normal Psychiatric Exam Psychiatric Exam: Normal Results Results Group Beta Strep: Negative Blood Type: O+ Rubella Status: Immune Varicella Immunity: Immune Lab Results: Hep B&C neg, HIV neg, Syphilis neg, GC CT neg, 1 hour 115. Declines CF, SMA and cfDNA or AFP testing Risk Assessment Risk for Shoulder Dystocia Historical/Initial OB: NEGATIVE FOR: Pelvic Abnormality, Pre- BMI>30, Previous Shoulder Dystocia or Previous Macrosomia 36 Weeks: NEGATIVE FOR: Current Gestational DM, EFW>4500gms or Maternal Weight Gain>40lbs Increased Risk?: No Delivery Plan @ 36wks: Delivery Plan @ 40 wks: NVD Risk for Pre-Eclampsia Daily Dose ASA Indicated: Yes Date Initiated/Initials: start at 12 wks. JK Yes, if one or more: POSTIVE FOR: Hx Pre-E/Gest HTN (elevated BP during labor, resolved ); NEGATIVE FOR: Chronic HTN, Multiple Gestation, Pre-gestational DM, Renal Disease, Systemic Lupus or APA Syndrome Yes, if 2 or more: NEGATIVE FOR: Nulliparity, Age>= 35 yrs, >10yr btwn pregnancies, BMI>30, ethinicty, Mother/Sister w/ Pre-E or Previous IUGR Risk for Post- Hemorrhage Initial: NEGATIVE FOR: Multiple Gestation, Previous PPH, Known Clotting Deficiency, Grand Multiparity or Anticoagulation 36 Weeks: NEGATIVE FOR: Anemia, hgb<10, Low platelets(thrombocytopenia), Gestational HTN or Pre-E, Polyhydraminios or EFW>4500gms At Risk?: No Counseled re: Active Management: Yes Date/Initials: 11/10/22 Risks Reviewed Risks Reviewed Upon Admission: Yes
--- NOTE | 2022-11-10 10:50 | W.OBNST ---
Date of service: 11/10/22 Time of Service: 09:00 NST Evaluation Reason for NST Reasons for Nonstress Test: OTHER, SEE COMMENT Reason for NST Other: rule out labor Gestational Age Gestational Age in Weeks and Days: 40 Weeks and 0Days Test and Monitor Explained Test/Monitor Explained: Test Explained, Monitor Explained and Patient Verbalized Understanding Vital Signs Blood Pressure: 119/74 Pulse: 71 Temperature: 98.6 F NST Information Date on Monitor: 11/10/22 Time on Monitor: 08:40 Date off Monitor: 11/10/22 Time off Monitor: 09:08 Total Time on Monitor: 28 NST Interventions: None NST Evaluation Patient States Movement: Present FHR Baseline: 120 Variability: Moderate 6-25 bpm Accelerations: 15x15 Decelerations: None NST Results: Reactive Note Ultrasound Done: N/A. NST Note Note: NST is reactive and reassuring. Admit if ROM + positive. NST Reviewed and Verified by: Betzaida Robbins
[2022-11-10 11:02] LABS: HCT 33.7 % (36.0-46.0); HGB 11.7 g/dL (11.2-15.7); MCHC 34.7 % (32.0-36.0); MCV 84 fL (80-95); MPV 11.6 fL (8.0-11.0); Platelet Count 159 10^3/uL (130-400); RBC 4.03 10^6/uL (3.93-5.22); RDW 13.3 % (11.7-14.6); RDW-SD 40.3 fL; WBC 8.51 10^3/uL (4.4-10.8)
--- NOTE | 2022-11-10 13:13 | PGE_ITS ---
Date of service: 11/10/22 Time of Service: 13:13 Informed Consent Informed Consent: Augmentation of Labor and Other (expectant management and reassess at 1200 for augmentation if indicated) Pelvic Exam Dilation: 4 Effacement (%): 90 station: -1 Cervix Position: posterior Consistency: soft Contractions Monitor Mode: Palpation Contraction Frequency(min): irregular Contraction Duration(sec): irregular Intensity: Mild/Moderate Fetus A Assessment Note: FHR tracing is pending. FHR via doppler has been within normal range Assessment and Plan Assessment and plan (1) Premature rupture of membranes (PROM) at term with onset of labor after 24 hours, antepartum: Status: Acute Assessment and plan: 1. Contractions are reported as less frequent and patient prefers augmentation with pitocin at this time 2. Risks, benefits and alternatives reviewed, Huma confirms her choice to augment with pitocin 3. Will review plan of care with OB Physician power distribution engineer as well. 4. Continue to expect NVD. KH Objective Abnormal lab results 11/10/22 Range/Units 10:49 Hct 33.7 L (36.0-46.0) % MPV 11.6 H (8.0-11.0) fL Pulse Resp BP 62 16 118/76 11/10/22 10:33 11/10/22 10:30 11/10/22 10:33 Laboratory Results WBC 8.51 10^3/uL (4.4-10.8) 11/10/22 10:49 RBC 4.03 10^6/uL (3.93-5.22) 11/10/22 10:49 Hgb 11.7 g/dL (11.2-15.7) 11/10/22 10:49 Hct 33.7 % (36.0-46.0) L 11/10/22 10:49 MCV 84 fL (80-95) 11/10/22 10:49 MCH 29.0 pg (27.0-33.0) 11/10/22 10:49 MCHC 34.7 % (32.0-36.0) 11/10/22 10:49 RDW 13.3 % (11.7-14.6) 11/10/22 10:49 Plt Count 159 10^3/uL (130-400) 11/10/22 10:49 MPV 11.6 fL (8.0-11.0) H 11/10/22 10:49 Membranes Rupture Positive 11/10/22 08:40 Patient ABO/Rh O Positive 11/10/22 10:49 Antibody Screen NEGATIVE 11/10/22 10:49 Subjective Interval history since last seen: Huma reports contractions have become less frequent. She would like to augment labor with pitocin. She understands that this could alter waterbirth. She is OK with that as EFM is required. Risks, benefits and alternatives including expectant management reviewed and patient confirms her desire for pitocin to speed this up Interventions Augmentation (will begin pitocin augmentation) , Pitocin rate (mU/min): 2 Results Hemoglobin/Hematocrit: Hgb 11.7 g/dL (11.2-15.7) 11/10/22 10:49 Hct 33.7 % (36.0-46.0) L 11/10/22 10:49 Abnormal Lab Findings: Abnormal Labs 11/10/22 10:49 Hct 33.7 L MPV 11.6 H
[2022-11-10] MEDS: Lactated Ringers 1,000 ML 125 ML IV (13:51)
[2022-11-10] MEDS: Oxytocin/Normal Saline 30 UNIT/500 ML BAG 2 UNITS IV (13:52)
--- NOTE | 2022-11-10 16:51 | W.PM.OBNL1 ---
Date of service: 11/10/22 Time of Service: 16:51 Informed Consent Informed Consent: Augmentation of Labor and Other (expectant management and reassess at 1200 for augmentation if indicated) Contractions Monitor Mode: External Contraction Frequency(min): 3 Contraction Duration(sec): 60 Intensity: Mild/Moderate Fetus A Monitor: External (US) Heart Rate Baseline: 120 Variability: Moderate (6-25 BPM) Categories: Category I Accelerations: Present Decelerations: None Assessment and Plan Assessment and plan (1) PROM (premature rupture of membranes): Status: Acute Assessment and plan: 1. Pitocin augmentation is being done, pitocin is at 10 mu 2. Patient tolerating well 3. OB physician aware 4. Continue to expect NVD Objective Abnormal lab results 11/10/22 Range/Units 10:49 Hct 33.7 L (36.0-46.0) % MPV 11.6 H (8.0-11.0) fL Temp Pulse Resp BP 98.2 F 88 16 122/74 11/10/22 15:30 11/10/22 13:25 11/10/22 13:25 11/10/22 13:25 Laboratory Results WBC 8.51 10^3/uL (4.4-10.8) 11/10/22 10:49 RBC 4.03 10^6/uL (3.93-5.22) 11/10/22 10:49 Hgb 11.7 g/dL (11.2-15.7) 11/10/22 10:49 Hct 33.7 % (36.0-46.0) L 11/10/22 10:49 MCV 84 fL (80-95) 11/10/22 10:49 MCH 29.0 pg (27.0-33.0) 11/10/22 10:49 MCHC 34.7 % (32.0-36.0) 11/10/22 10:49 RDW 13.3 % (11.7-14.6) 11/10/22 10:49 Plt Count 159 10^3/uL (130-400) 11/10/22 10:49 MPV 11.6 fL (8.0-11.0) H 11/10/22 10:49 Membranes Rupture Positive 11/10/22 08:40 Patient ABO/Rh O Positive 11/10/22 10:49 Antibody Screen NEGATIVE 11/10/22 10:49 Subjective Interval history since last seen: Huma is beginning to feel regular contractions. Pitocin at 10, KH Results Hemoglobin/Hematocrit: Hgb 11.7 g/dL (11.2-15.7) 11/10/22 10:49 Hct 33.7 % (36.0-46.0) L 11/10/22 10:49 Abnormal Lab Findings: Abnormal Labs 11/10/22 10:49 Hct 33.7 L MPV 11.6 H
--- NOTE | 2022-11-10 19:35 | OBVDS_ITS ---
Date of service: 11/10/22 Time of Service: 19:35 OB Labor/ Delivery Information Baby A Delivery Delivery Method: Spontaneaous Presentation: Cephalic Cephalic Position: Vertex Vertex Position: Left Occipital Anterior Cord Description-Baby A: 3 Vessels, Nuchal Cord (X2 loose and reduced prior to shoulders delivering without difficulty) and Clamped/Cut Amniotic Fluid: Clear (terminal meconium) Estimated Blood Loss: 300 Delivery Outcome: Liveborn Complications: none noted Note: Huma presented 11/10 am with complaint of SROM at 0030 on 11/10. She was not in labor at that time. ROM + positive. She had expectant management for 12 hours and then desired augmentation with pitocin to allow labor to progress. FHR tracing CAT I throughout labor until 1851 when deceleration to 60 for 40 seconds was noted. Patient was 10 CM and began pushing with good effort. Second stage huddle was held, low risk for PPH or SD but we planned pitocin for second stage mangement. Corin Rodriguez delivered TYLER over 2nd degree vaginal/perineal lac eration at 1910. Loose nuchal cord was noted X 2 after head delivered and was reduced easily prior to shoulders delivering with maternal pushing effort. Pateint reached down and delivered her baby onto her abdomen. Positive family bonding noted. Baby was placed skin to skin and after 3 minutes cord stopped pulsing and 2 clamps were applied and the cord with cut by FOB. Placenta delivered via gutierrez mechanism at 1915. Fundus firmed with massage and IV pitocin. 2nd degree lac was infiltrated with 1% lidocaine and repaired with 3 interrupted stiches of 3.0 Chromic. Sponge, needle and instrument count are correct. EBL 300 cc. Mother and baby Omid are in satisfactory condition. Expect normal PP course. See completed delivery note for weight. Apgra score 6 and 8. Providers Nurse Correctional Maintenance Technician: Betzaida Robbins Nurse: Shreya Beck Nurse: Sangeetha Odom Labor/Delivery Information Number of Babies in Womb: 1 Steroids Given: None Reason Steroids Not Administered: N/A Group Beta Strep: Negative Antibiotics Administered: No Rubella Status: Immune Blood Type: O+ Varicella Immunity: Immune Stages of Labor Onset of Labor Date: 11/10/22 Onset of Labor Time: 00:00 Complete Dilatation Date: 11/10/22 ROM Baby A: 11/10/22 ROM Baby A: 00:01 ROM Total Time- Baby A: [id number] Delivery Date-Baby A: 11/10/22 Infant Delivery Time-Baby A: 19:11 Total Length of Labor-Baby A: 19 hours and 11 minutes Placenta Cultured: No Placenta Status: Delivered Baby A Gender: Male Gestational Status: Term (39-41.6 wks) Gestational Age in Weeks/Days: 40 Weeks and 0 Days Score-1 Minute Interval(Baby A) Heart Rate-1 minute: 100 BPM or Greater Respiratory Effort- 1 minute: Spontaneous/Strong Cry Muscle Tone-1 minute: Minimal Flexion/Extension Reflex Response-1 minute: Minimal Response Color-1 minute: Pallor or Cyanosis Total Score-1 minute: 6 Score-5 Minute Interval(Baby A) Heart Rate- 5 minute: 100 BPM or Greater Respiratory Effort-5 minute: Spontaneous/Strong Cry Muscle Tone-5 minute: Active Movement Reflex Response-5 minute: Prompt Response Color-5 minute: Pallor or Cyanosis Total Score- 5 minute: 8
[2022-11-10] MEDS: Acetaminophen 325 MG TAB 650 MG PO (20:17)
[2022-11-10] MEDS: Ibuprofen 600 MG TAB PO (20:17)
[2022-11-11] MEDS: Ibuprofen 600 MG TAB PO ×2 (02:24→10:37)
[2022-11-11] MEDS: Acetaminophen 325 MG TAB 650 MG PO ×2 (02:24→10:37)
[2022-11-11 02:38] VITALS: BP 122/85; PULSE 71; RESP 18
--- NOTE | 2022-11-11 08:33 | W.PM.OBPNV1 ---
Date of service: 11/11/22 Time of Service: 08:34 Assessment and Plan Assessment and plan (1) care following vaginal delivery: Status: Acute Assessment and plan: 1. continue present management 2. Will reassess later today for possible discharge if baby is able to be discharged. (2) Lactating mother: Status: Acute Assessment and plan: 1. Continue present management. JEANNA Subjective Subjective Interval history: Feeling good. Baby nursing fairly well but is tired. She denies pain. Is hoping to go home this evening if possible. [place] baby status: Doing well, Nursing well and Rooming in feeding status: Exclusively breast feeding Exam Physical Exam Vital signs: Temp Pulse Resp BP 97.5 F L 71 18 122/85 11/10/22 22:30 11/11/22 02:38 11/11/22 02:38 11/11/22 02:38 Vital Signs Reviewed: Yes Constitutional Constitutional: no acute distress, average body habitus and cooperative HEENT Exam HEENT Exam: Normal Neck Exam Neck Exam: Normal (normal visual inspection) Respiratory Exam Respiratory Exam: Normal Cardiovascular Exam Cardiovascular Exam: Normal Abdominal Exam Abdomen: Other (normal exam) Fundal Exam Fundus: Below Umbilicus and Firm Comment: small lochia noted. Rectal Exam Rectal Exam: Not Done Exam Perineum: Hemorrhoids (soft), Normal and Repair Intact Extremities Exam Extremity Exam: Normal (denies calf tenderness) and Full ROM Back/Spine/Pelvis Exam Back Exam: Normal Skin Exam Skin Exam: Normal Neurological Exam Neurological Exam: Normal Psychiatric Exam Psychiatric Exam: Normal Results Hemoglobin/Hematocrit: Hgb 11.7 g/dL (11.2-15.7) 11/10/22 10:49 Hct 33.7 % (36.0-46.0) L 11/10/22 10:49 Abnormal Lab Findings: Abnormal Labs 11/10/22 10:49 Hct 33.7 L MPV 11.6 H
--- NOTE | 2022-11-11 16:13 | DSE_ITS ---
Date of service: 11/11/22 Time of Service: 16:13 DS: Diagnosis Discharge Diagnosis (1) care following vaginal delivery: Status: Acute Asessment and Plan: 1. Planning discharge at 24 hours PP. 2. Denies needs for medications at home 3. Will RTO in 2 and 6 weeks PP, undecided on contraception 4. PP warning signs reviewed and when/how to contact provider reservations agent. KH (2) Lactating mother: Status: Acute Asessment and Plan: 1. continue present management. Discharge Plan Disposition Patient Disposition: Home Condition: Good Discharge Details Reason For Visit: PROM at term Admit Date/Time: 11/10/22 10:25 Admit Provider: Betzaida Robbins Attending Provider: Betzaida Robbins Hospital Course Hospital Course: Huma presented with PROM at term without labor. After 12 hours of expectant management, patient preferred augmentation with pitocin. She progressed well through labor and delivered a live male over 2nd degree perienal laceration. Normal PP course. Will RTO in 2 and 6 weeks PP. Home Meds and New Rx's Prescriptions: Continued prenat.vits,niesha,mud-dcgl-knhic Tablet 1 tab PO DAILY [id number] [Fioricet] 50-300-40 mg capsule 1 cap PO Q12H PRN PRN (Reason: pain) Qty: 2 0RF Discontinued aspirin 81 mg tablet,delayed release (DR/EC) 81 mg PO DAILY Qty: 90 3RF Rx Instructions: one tab daily alternating with 2 tabs every other day, start at 12 wks Discharge Instructions Instructions: Depression (GEN) Stand Alone Forms: BC Instructions, BC Post Vaginal Deliver Activity:: Activity as Tolerated Equipment/Supplies:: No Equipment Needed Diet:: As Tolerated Discharge Orders Discharge Orders: Discharge Order (Routine); Ordered 11/11/22 Ordered By: Betzaida Robbins OB:DS Summary Summary Vaginal Delivery Method: Spontaneaous Episiotomy Description: None Laceration Description: Perineal Laceration Extension: Second Degree Contraception Discussed Contraception Discussed: Yes Contraceptive Plan: Undecided, [place] Infant Gender-Baby A: Male Disposition of Baby A: Home Status at Discharge Functional status at discharge: independent ambulation Overall status at discharge: patient is back to baseline Mental Status: mental status grossly normal Speech and Movement: speech and movement normal Mood: congruent mood Affect: normal affect Time Spent with Patient providing and/or coordinating discharge services: Less than 30 minutes Exam Physical Exam Vital signs: Temp Pulse Resp BP 97.5 F L 71 18 122/85 11/10/22 22:30 11/11/22 02:38 11/11/22 02:38 11/11/22 02:38 Vital Signs Reviewed: Yes Constitutional Constitutional: no acute distress, average body habitus and cooperative HEENT Exam HEENT Exam: Normal Neck Exam Neck Exam: Normal (normal visual inspection) Respiratory Exam Respiratory Exam: Normal Cardiovascular Exam Cardiovascular Exam: Normal Abdominal Exam Abdomen: Other (normal exam) Fundal Exam Fundus: Below Umbilicus and Firm Comment: small lochia noted. KH Rectal Exam Rectal Exam: Not Done Exam Perineum: Normal and Repair Intact Extremities Exam Extremity Exam: Normal (denies calf tenderness) and Full ROM Back/Spine/Pelvis Exam Back Exam: Normal Skin Exam Skin Exam: Normal Neurological Exam Neurological Exam: Normal Psychiatric Exam Psychiatric Exam: Normal PFSH All Active Problems Lactating mother (Acute) care following vaginal delivery (Acute) History of nicotine vaping (Acute) (Acute) Anxiety (Chronic) ASCUS with positive high risk HPV (Acute) Medical History Anemia affecting History of gestational hypertension during spontaneous labor, resolved History of migraine Nausea and vomiting in PROM (premature rupture of membranes) Family History Mother No problems noted. Father No problems noted. Other Heart disease Grandparent Hyperlipidemia Social History Smoking/Tobacco Use Status: Former Tobacco Use tobacco type: e-cigarettes Second Hand Exposure: Yes (reviewed fact smoking outside is no longer a safe p ractice to deter risks.) Counseling given: provider counseling Smoking risk assessment performed?: Yes Housing: house Female Reproductive History Menstrual control method: none History History 2 Para 1 Hx # Term Pregnancies 1 Multiple births 0 Hx # Pregnancies 0 Ectopic pregnancies 0 AB induced 0 Hx Number of Living Children 1 AB spontaneous 0 Past Pregnancies Del. Date GA/Weeks # Preg Succ Route Wgt Sex Labor Lgth Anesth esia Location Prov Complic 06/04/20 41 No Yes vaginal 8 lb 6.4 oz Male 20 hrs 16 min [facility] [place] Delivery Date: 06/04/20 Last Updated by: Farhana Wall spont labor, unmedicated, used tub, high BP during labor, 2nd degree repaired by Dr. Renteria in room. DS: Data Vitals/I&O Vitals and I&O: Vital Signs Temperature 97.5 F L 11/10/22 22:30 Temperature 98.6 F 11/10/22 10:51 Temperature Source Oral 11/11/22 02:38 Pulse 71 11/11/22 02:38 Pulse 71 11/10/22 10:51 Pulse Rhythm Regular 11/10/22 10:30 Respiratory Rate 18 11/11/22 02:38 Respiratory Depth Normal 11/10/22 10:30 Blood Pressure 122/85 11/11/22 02:38 Blood Pressure 119/74 11/10/22 10:51 Blood Pressure Mean 97 11/11/22 02:38 Oxygen Delivery Method Room Air 11/10/22 10:30 Oxygen Flow Rate 0 11/10/22 10:30 Pain Level 3 11/11/22 02:38 Comment oral temp will not register. 11/11/22 02:38 Intake & Output 11/10/22 11/11/22 11/11/22 23:59 11:59 23:59 Intake Total 42.1 / 42.1 Output Total 250 / 250 Balance -207.9 / -207.9 Intake: IV 42.1 / 42.1 Output: Urine 250 / 250 Other: Urine Color Bright Red Comment Voiding independently, pt did not use hat. Voiding Methods Toilet
== END 2022-11-11 20:50 | disposition home or self-care (01) | DRG 806 ==
LOC: BCD 19:36 → OBS 19:36
PROVIDERS: Admitting Provider Advanced Practice Midwife; Visit Provider Advanced Practice Midwife
DX: O42.12 Full-term premature rupture of membranes, onset of labor more than 24 hours following rupture (principal); O99.354 Diseases of the nervous system complicating childbirth; Z37.0 Single live birth; Z3A.40 40 weeks gestation of pregnancy; O70.1 Second degree perineal laceration during delivery; O69.81X0 Labor and delivery complicated by cord around neck, without compression, not applicable or unspecified; O99.02 Anemia complicating childbirth; D64.9 Anemia, unspecified; O99.344 Other mental disorders complicating childbirth; F41.9 Anxiety disorder, unspecified; G43.909 Migraine, unspecified, not intractable, without status migrainosus; R87.610 Atypical squamous cells of undetermined significance on cytologic smear of cervix (ASC-US); Z87.891 Personal history of nicotine dependence
CPT/HCPCS: 36415; 84112; 85027; 86850; 86900; 86901; J3490

== ENCOUNTER 2023-03-07 09:51 | Day surgery (SDC) | payer BC, SELFPAY ==
[2023-03-07] VITALS (11 sets, daily range): BP systolic 103–133; BP diastolic 49–85; PULSE 48–80; RESP 14–21; TEMP 36.3–37; O2SAT 97–100; BMI 20.9
--- NOTE | 2023-03-07 11:00 | DI.CT_ITS ---
Exam(s) CT ABDOMEN PELVIS W EXAM: CT ABDOMEN PELVIS W CLINICAL HISTORY: RLQ pain. TECHNIQUE: Imaging Protocol: Axial computed tomography images with coronal and sagittal reformatted images were created and reviewed CONTRAST MATERIAL: Intravenous: Omnipaque 350 Contrast volume:100 ml Oral: / no COMPARISON: No exams were available for comparison FINDINGS: ABDOMEN and PELVIS: Lung Bases: No acute findings. Liver: Normal density. No measurable mass. Gallbladder and biliary tract: No radiodense calculus or dilation. Pancreas: Normal density. No abnormal calcifications or inflammatory process. No evidence of mass. Spleen: Normal. Kidneys: Normal size, contour and axis. No radiodense stones. No obstructive uropathy. No suspicious masses seen. Adrenal glands: No masses seen. Vasculature: Abdominal aorta non-dilated. Soft tissues: Unremarkable. Bladder: No gross wall thickening. No calculi.No focal mass. Bowel: No obstruction. No bowel wall thickening. Appendix dilated to 10 millimeters. Appendix proj ects medially from the cecum and projects cephalad. No abscess or perforation. Moderate quantity of stool. Peritoneal cavity: Trace amount of fluid in low pelvis. No focal collection or mesenteric inflammato ry response. Bones: Unremarkable for age. Reproductive organs: Within normal limits. Lymph nodes: Unremarkable. IMPRESSION:: Findings consistent with appendicitis. No evidence of perforation or abscess. Findings called to Basil Chu, ER provider. RADIATION DOSE DELIVERED: 685.59mGy.cm Total DLP DATA REPOSITORY: All CT scans at this facility are submitted to the National Radiology Data Registry (NRDR) Dose Index Registry (DIR) with the [employer] ([employer]). RADIATION OPTIMIZATION: All CT scans at this facility use at least one of these dose optimization te chniques: automated exposure control; mA and/or kV adjustment per patient size (includes targeted exa ms where dose is matched to clinical indication); or iterative reconstruction.
[2023-03-07] MEDS: Ketorolac 15 MG/ML VIAL IVP (11:17)
[2023-03-07 11:18] LABS: Abs Immature Grans 0.01 10^3/uL (0.0-0.06); Absolute Basophil Count 0.02 10^3/uL (0.0-0.2); Absolute Eosinophil Count 0.08 10^3/uL (0.0-0.7); Absolute Lymphocyte Count 2.48 10^3/uL (1.2-3.4); Absolute Monocyte Count 0.36 10^3/uL (0.1-0.8); Absolute Neutrophil Count 3.88 10^3/uL (1.2-6.7); Basophils % 0.3; Eosinophils % 1.2; HGB 13.2 g/dL (11.2-15.7); Immature Grans % 0.1; Lymphocytes % 36.3; MCH 27.7 pg (27.0-33.0); MCHC 33.8 % (32.0-36.0); MCV 82 fL (80-95); MPV 10.2 fL (8.0-11.0); Monocytes % 5.3; Neutrophils % 56.8; Platelet Count 232 10^3/uL (130-400); RBC 4.77 10^6/uL (3.93-5.22); RDW 13.2 % (11.7-14.6); RDW-SD 39.4 fL; WBC 6.83 10^3/uL (4.4-10.8)
[2023-03-07] MEDS: Normal Saline 1,000 ML 1000 ML IV (11:18)
[2023-03-07] MEDS: Normal Saline - Diluent 50 ML VIAL IJ (11:28)
[2023-03-07] MEDS: Omnipaque 350 MG/ML 100 ML BTL IJ (11:29)
[2023-03-07 11:36] LABS: ALT 20 U/L (14-59); AST 12 U/L (15-37); Albumin 4.1 g/dL (3.4-5.0); Alkaline Phosphatase 81 U/L (46-116); BUN 14 mg/dL (7-18); Bilirubin, Total 0.4 mg/dL (0.2-1.0); CREATININE 0.8 mg/dL (0.55-1.02); Calcium 9.2 mg/dL (8.5-10.1); Chloride 104 mmol/L (98-107); Glucose 93 mg/dL (74-106); Lipase 41 U/L (16-77); Potassium 3.6 mmol/L (3.5-5.1); Sodium 141 mmol/L (136-145); Total Protein 7.4 g/dL (6.4-8.2)
--- NOTE | 2023-03-07 12:02 | ED.GENADUL_ITS ---
HPI General Mode of arrival: ambulatory . Date/Time Provider Initiated Documentation: 03/07/23 11:02 . Limitations to Documentation: no limitations . Information obtained by: patient and old records reviewed . History of Present Illness 23 year old F presents to the emergency department with the chief complaint of Right lower quadrant abdominal pain, described as moderate, and is localized to the abdomen. Patient started experiencing this day(s) (4) and it has been constant. No relieving factors improve symptom(s), No exacerbating factors reported . Patient did receive the following treatments prior to arrival, none Related Data Home Medications Medication Instructions Recorded Confirmed norethindrone (contraceptive) 0.35 0.35 mg PO DAILY #84 tabs 12/23/22 03/07/23 mg tablet Previous Rx's Medication Instructions Recorded norethindrone (contraceptive) 0.35 0.35 mg PO DAILY #84 tabs 12/23/22 mg tablet Allergies Allergy/AdvReac Type Severity Reaction Status Date / Time No Known Allergies Allergy Verified 03/07/23 13:47 General Stated Complaint: Abd Prob HAKAN: 3 Review of Systems Constitutional Constitutional: Reports chills, Denies fever(s), Reports malaise and Reports poor appetite Cardiovascular Cardiovascular: Denies chest pain and Denies dyspnea Respiratory Respiratory: Denies cough and Denies dyspnea Gastrointestinal Gastrointestinal: Reports as per HPI, Reports abdominal pain, Denies melena, Denies change in bowel habits, Denies constipation, Denies diarrhea, Denies nausea and Denies vomiting Genitourinary Genitourinary: Denies hematuria, Denies urinary incontinence, Denies urinary hesitancy and Denies urinary urgency Integumentary/Breasts Skin/Breast: Denies rash Exam Const General: cooperative Orientation: alert, awake and oriented x3 Resp Effort & Inspection: normal respiratory effort and able to speak in complete sentences Auscultation: clear to auscultation bilaterally Cardio Rate: regular rate Rhythm: regular rhythm Heart Sounds: S1 normal and S2 normal GI Palpation: soft, no hepatosplenomegaly, not firm, no guarding, no masses, no pulsatile masses, not rigid, no splenomegaly and tender in the RLQ and with rebound tenderness; psoas sign negative Auscultation: normal bowel sounds Back/Spine/Pelvis Back: no CVA tenderness Neuro General: patient alert, patient awake, patient oriented x3, gait normal and moves all extremities Course Vital Signs Vital signs: Vital Signs Temperature 36.4 C L 03/07/23 10:00 Pulse 80 03/07/23 10:00 Respiratory Rate 20 03/07/23 10:00 Blood Pressure 115/61 03/07/23 10:00 Pulse Oximetry 99 03/07/23 10:00 Temperature 36.4 C L 03/07/23 10:00 Temperature Source Skin 03/07/23 10:00 Pulse 80 03/07/23 10:00 Respiratory Rate 20 03/07/23 10:00 Respiratory Effort Normal, Non-Labored 03/07/23 10:03 Blood Pressure 115/61 03/07/23 10:00 Blood Pressure Position Sitting 03/07/23 10:00 Pulse Oximetry 99 03/07/23 10:00 Oxygen Delivery Method Room Air 03/07/23 10:00 Oxygen Flow Rate 0 03/07/23 10:00 Pain Level 5 03/07/23 11:17 Lab/Test Results Lab/Test Results: Laboratory Tests Range/Units 03/07/23 11:05 WBC (4.4-10.8) 10^3/uL 6.83 RBC (3.93-5.22) 10^6/uL 4.77 Hgb (11.2-15.7) g/dL 13.2 Hct (36.0-46.0) % 39.0 MCV (80-95) fL 82 MCH (27.0-33.0) pg 27.7 MCHC (32.0-36.0) % 33.8 RDW (11.7-14.6) % 13.2 Plt Count (130-400) 10^3/uL 232 MPV (8.0-11.0) fL 10.2 Immature Gran % 0.1 Neutrophils % 56.8 Lymphocytes % 36.3 Monocytes % 5.3 Eosinophils % 1.2 Basophils % 0.3 Nucleated RBC % (0.0-0.3) % 0.0 Absolute Neutrophils (1.2-6.7) 10^3/uL 3.88 Absolute Lymphocytes (1.2-3.4) 10^3/uL 2.48 Absolute Monocytes (0.1-0.8) 10^3/uL 0.36 Absolute Eosinophils (0.0-0.7) 10^3/uL 0.08 Absolute Basophils (0.0-0.2) 10^3/uL 0.02 Sodium (136-145) mmol/L 141 Potassium (3.5-5.1) mmol/L 3.6 Chloride (98-107) mmol/L 104 Carbon Dioxide (21.0-32.0) mmol/L 28.0 Anion Gap (3-11) mmol/L 9.0 BUN (7-18) mg/dL 14 Creatinine (0.55-1.02) mg/dL 0.8 Est GFR (CKD-EPI 2020) (mL/min/1.73m2) 104.80 Glucose (74-106) mg/dL 93 Calcium (8.5-10.1) mg/dL 9.2 Magnesium (1.8-2.4) mg/dL 2.0 Total Bilirubin (0.2-1.0) mg/dL 0.4 AST (15-37) U/L 12 L ALT (14-59) U/L 20 Alkaline Phosphatase (46-116) U/L 81 Total Protein (6.4-8.2) g/dL 7.4 Albumin (3.4-5.0) g/dL 4.1 Lipase (16-77) U/L 41 Medical Decision Making Patient presenting to the emergency department for chief complaint of abdominal pain. Patient reports general diffuse abdominal pain that started on Terry night but over the last 24 hours has shifted to the right lower quadrant. Patient went to local urgent care who performed testing which was negative along with COVID testing which was also negative. Based on their exam they were concerned for possible appendicitis and sent her to the emergency department. Patient has no significant contributing past medical history. Physical exam does show right lower quadrant pain with rebound tenderness exam is otherwise noncontributory. Will plan on checking patient's labs and performing CT imaging. Pending results patient given ketorolac and IV fluids. Labs show unremarkable CBC, CMP and lipase. CT imaging shows appendicitis without any other acute findings. Will contact general surgery to further discuss management of patient's case. Discussed patient's case with Dr. Garcia whom stated he would evaluate the patient for surgical intervention. Imaging Data Radiologic Study: Imaging: CT Scan Radiologist's impression: Exam(s) a CT:CT abdomen & pelvis w Exam(s) CT ABDOMEN PELVIS W EXAM: CT ABDOMEN PELVIS W CLINICAL HISTORY: RLQ pain. TECHNIQUE: Imaging Protocol: Axial computed tomography images with coronal and sagittal reformatted images were created and reviewed CONTRAST MATERIAL: Intravenous: Omnipaque 350 Contrast volume:100 ml Oral: / no COMPARISON: No exams were available for comparison FINDINGS: ABDOMEN and PELVIS: Lung Bases: No acute findings. Liver: Normal density. No measurable mass. Gallbladder and biliary tract: No radiodense calculus or dilation. Pancreas: Normal density. No abnormal calcifications or inflammatory process. No evidence of mass. Spleen: Normal. Kidneys: Normal size, contour and axis. No radiodense stones. No obstructive uropathy. No suspicious masses seen. Adrenal glands: No masses seen. Vasculature: Abdominal aorta non-dilated. Soft tissues: Unremarkable. Bladder: No gross wall thickening. No calculi.No focal mass. Bowel: No obstruction. No bowel wall thickening. Appendix dilated to 10 millimeters. Appendix projects medially from the cecum and projects cephalad. No abscess or perforation. Moderate quantity of stool. Peritoneal cavity: Trace amount of fluid in low pelvis. No focal collection or mesenteric inflammatory response. Bones: Unremarkable for age. Reproductive organs: Within normal limits. Lymph nodes: Unremarkable. IMPRESSION:: Findings consistent with appendicitis. No evidence of perforation or abscess. Findings called to ANA Chatterjee provider. Lab Data Lab results reviewed: Yes I reviewed the patient's lab results. Quality:SDOH Health Related Social Needs: No Data to Display PFSH All Active Problems Acute appendicitis (Acute) Lactating mother (Acute) care following vaginal delivery (Acute) History of nicotine vaping (Acute) (Acute) Anxiety (Chronic) ASCUS with positive high risk HPV (Acute) Medical History PROM (premature rupture of membranes) History of migraine Anemia affecting History of gestational hypertension during spontaneous labor, resolved Nausea and vomiting in Family History Mother No problems noted. Father No problems noted. Other Heart disease Grandparent Hyperlipidemia Social History Smoking/Tobacco Use Status: Current every day Tobacco Type: e-cigarettes Second Hand Exposure: Yes (reviewed fact smoking outside is no longer a safe practice to deter risks.) Counseling given: provider counseling Smoking risk assessment performed?: Yes Alcohol Intake: never Drug use: Never Counseling given: No Housing: house Female Reproductive History Menstrual control method: none History History 2 Para 1 Hx # Term Pregnancies 2 Multiple births 0 Hx # Pregnancies 0 Ectopic pregnancies 0 AB induced 0 Hx Number of Living Children 2 AB spontaneous 0 Past Pregnancies Del. Date GA/Weeks # Preg Succ Route Wgt Sex Labor Lgth Anesth esia Location Prov Complic 06/04/20 41 No Yes vaginal 3810.176 g Male 20 hrs 16 min [facility] [place] 11/10/22 40 No Yes vaginal Male 19hrs 11min May [facility] CNM Delivery Date: 06/04/20 Last Updated by: Frahana Wall spont labor, unmedicated, used tub, high BP during labor, 2nd degree rep aired by Dr. Renteria in room. Delivery Date: 11/10/22 Last Updated by: LILA Courtney; SROM/PROM, pitocin augmentation; 2nd degree laceration,repaired Discharge Plan Disposition Patient Disposition: Admit to [facility] Discharge Details Clinical Impression: Acute appendicitis Attending Provider: Zohaib Garcia Primary Care Provider: [place],Local ED Provider: Basil Chu
--- NOTE | 2023-03-07 12:21 | HPE_ITS ---
Date of service: 03/07/23 Time of Service: 12:21 Assessment and Plan Assessment and plan (1) Acute appendicitis: Status: Acute Assessment and plan: Although the duration of her symptoms is a little bit atypical for appendicitis, certainly, the exam and CT scan supports that diagnosis. We talked about the risks and benefits of laparoscopic appendectomy, and anticipated recovery. I think she has a good understanding of this. We started some antibiotics, and move forward with laparoscopic appendectomy. History of Present Illness History of Present Illness Chief Complaint: Abdominal pain Narrative: Huma is 23 years old. She noticed the acute onset of nonfocal abdominal pain sometime late Tuesday. She was in her usual state of health and going about her daily routine. She describes it kind of as a crampy stabbing type pain. It continued over the next few days. She may be had some loss of appetite associated with it, but no significant nausea or vomiting. She had no diarrhea or other significant gastrointestinal complaints. She does have a little bit of upper respiratory tract congestion, but denies any fevers, shortness of breath. She has had a nonproductive cough Review of Systems Constitutional Constitutional: Reports fatigue, Denies fever(s) and Reports poor appetite Eyes Eyes: Reports system reviewed and no additional complaints, except as documented ENT Ears, Nose, Mouth, and Throat: Reports system reviewed and no additional complaints, except as documented Cardiovascular Cardiovascular: Denies chest pain and Denies dyspnea Respiratory Respiratory: Denies chest congestion, Reports cough and Denies dyspnea Gastrointestinal Gastrointestinal: Reports abdominal pain, Denies nausea and Denies vomiting Genitourinary Genitourinary: Reports system reviewed and no additional complaints, except as documented Musculoskeletal Musculoskeletal: Reports system reviewed and no additional complaints, except as documented Neurologic Neurologic: Reports system reviewed and no additional complaints, except as documented Psychiatric Psychiatric: Reports system reviewed and no additional complaints, except as documented Endocrine Endocrine: Reports fatigue Hematologic/Lymphatic Hematologic/Lymphatic: Denies easy bleeding and Denies easy bruising PFSH All Active Problems Acute appendicitis (Acute) Lactating mother (Acute) care following vaginal delivery (Acute) History of nicotine vaping (Acute) (Acute) Anxiety (Chronic) ASCUS with positive high risk HPV (Acute) Medical History PROM (premature rupture of membranes) History of migraine Anemia affecting History of gestational hypertension during spontaneous labor, resolved Nausea and vomiting in Family History Mother No problems noted. Father No problems noted. Other Heart disease Grandparent Hyperlipidemia Social History Smoking/Tobacco Use Status: Current every day Tobacco Type: e-cigarettes Second Hand Exposure: Yes (reviewed fact smoking outside is no longer a safe practice to deter risks.) Counseling given: provider counseling Smoking risk assessment performed?: Yes Alcohol Intake: never Drug use: Never Counseling given: No Housing: house Female Reproductive History Menstrual control method: none History History 2 2 Para 1 Hx # Term Pregnancies 2 Multiple births 0 Hx # Pregnancies 0 Ectopic pregnancies 0 AB induced 0 Hx Number of Living Children 2 AB spontaneous 0 Past Pregnancies Del. Date GA/Weeks # Preg Succ Route Wgt Sex Labor Lgth Anesth esia Location Prov Complic 06/04/20 41 No Yes vaginal 8 lb 6.4 oz Male 20 hrs 16 min [facility] [place] 11/10/22 40 No Yes vaginal Male 19hrs 11min May porras CNM Delivery Date: 06/04/20 Last Updated by: Farhana Wall spont labor, unmedicated, used tub, high BP during labor, 2nd degree repaired by Dr. Renteria in room. Delivery Date: 11/10/22 Last Updated by: LILA Courtney; SROM/PROM, pitocin augmentation; 2nd degree laceration,repaired Meds Allergies and Home Medications Allergies Allergy/AdvReac Type Severity Reaction Status Date / Time No Known Allergies Allergy Verified 03/07/23 13:47 Home Medications Medication Instructions Recorded Confirmed Type norethindrone (contraceptive) 0.35 0.35 mg PO DAILY #84 tabs 12/23/22 03/07/23 Rx mg tablet Exam Const General: cooperative and comfortable Nutritional Appearance: average body habitus Orientation: alert, awake and oriented x3 HENMT Head: normal to inspection Neck Neck: normal visual inspection and full ROM Resp Effort & Inspection: normal respiratory effort Auscultation: clear to auscultation bilaterally GI Inspection: normal to inspection Palpation: soft, no guarding, no hernias, no masses and tender (Suprapubic) Percussion: normal to percussion Auscultation: hypoactive bowel sounds Skin General skin exam: no rashes or lesions noted Neuro General: patient alert, patient awake and patient oriented x3 Extrem Right lower extremity: no cyanosis and no edema Left lower extremity: no cyanosis and no edema Results Labs 03/07/23 11:05 03/07/23 11:05 Labs: Laboratory Results - last 24 hr 03/07/23 11:05 WBC 6.83 RBC 4.77 Hgb 13.2 Hct 39.0 MCV 82 MCH 27.7 MCHC 33.8 RDW 13.2 Plt Count 232 MPV 10.2 Immature Gran % 0.1 Neutrophils % 56.8 Lymphocytes % 36.3 Monocytes % 5.3 Eosinophils % 1.2 Basophils % 0.3 Nucleated RBC % 0.0 Absolute Neutrophils 3.88 Absolute Lymphocytes 2.48 Absolute Monocytes 0.36 Absolute Eosinophils 0.08 Absolute Basophils 0.02 Sodium 141 Potassium 3.6 Chloride 104 Carbon Dioxide 28.0 Anion Gap 9.0 BUN 14 Creatinine 0.8 Est GFR (CKD-EPI 2020) 104.80 Glucose 93 Calcium 9.2 Magnesium 2.0 Total Bilirubin 0.4 AST 12 L ALT 20 Alkaline Phosphatase 81 Total Protein 7.4 Albumin 4.1 Lipase 41 Last Vital Signs Temp 97.5 F L 03/07/23 10:00 Pulse 80 03/07/23 10:00 Resp 20 03/07/23 10:00 BP 115/61 03/07/23 10:00 Pulse Ox 99 03/07/23 10:00 Time Spent Time spent with Patient: 40-54 minutes Time was spent: preparing to see the patient(eg.review tests), indepentently interpreting results, counseling the patient and care coordination
[2023-03-07] MEDS: Lactated Ringers 1,000 ML 80 ML IV (13:30)
--- NOTE | 2023-03-07 13:54 | ANES.PREOP_ITS ---
General Info Date of Service Date Performed: 03/07/23 Height: 5 ft 6 in Weight: 58.9 kg Body Mass Index (BMI): 20.9 Surgical Procedure: Operation Date: 03/07/23 14:55 Proposed Procedure Side Surgeon p Appendectomy Laparoscopic Zohaib Garcia MD Meds Allergies and Home Medications Allergies Allergy/AdvReac Type Severity Reaction Status Date / Time No Known Allergies Allergy Verified 03/07/23 13:47 Home Medication Medication Instructions Recorded norethindrone (contraceptive) 0.35 0.35 mg PO DAILY #84 tabs 12/23/22 mg tablet Current Visit Medications: Current Medications Generic Name Dose Route Start Last Admin Trade Name Freq PRN Reason Stop Dose Admin IV Miscellaneous Supplies 1 each 03/07/23 11:15 Iv Access-Emergency Dept IV DIRECTED LYNDA Iohexol 100 ml 03/07/23 11:30 03/07/23 11:29 Omnipaque 350 Mg/Ml 100 Ml Btl IJ 04/06/23 23:59 100 ml DIRECTED LYNDA Administration Sodium Chloride 0 ml 03/07/23 11:06 Normal Saline Flush 10 Ml Syr IVP PRN PRN Sodium Chloride 0 ml 03/07/23 20:00 Normal Saline Flush 10 Ml Syr IVP BID LYNDA Sodium Chloride 0 ml 03/07/23 11:06 Normal Saline 10 Ml Vial IJ DIRECTED PRN Sodium Chloride 50 ml 03/07/23 11:30 03/07/23 11:28 Normal Saline - Diluent 50 Ml Vial IJ 50 ml .FOR DI USE LYNDA Administration PFSH Active Problems Active Problems: Problem Status Onset Code Acute appendicitis K35.80 Lactating mother Z39.1 care following vaginal delivery Z39.2 History of nicotine vaping Z87.891 Z34.90 Anxiety F41.9 ASCUS with positive high risk HPV Medical History Medical History PROM (premature rupture of membranes) History of migraine Anemia affecting History of gestational hypertension during spontaneous labor, resolved Nausea and vomiting in Tobacco Smoking/Tobacco Use Status: Current every day Tobacco Type: e-cigarettes Second hand exposure: Yes (reviewed fact smoking outside is no longer a safe practice to deter risks.) Counseling given: provider counseling Alcohol Alcohol Intake: never Substance Use Substance use: Never Prental History History 2 2 Para 1 Hx # Term Pregnancies 2 Multiple births 0 Hx # Pregnancies 0 Ectopic pregnancies 0 AB induced 0 Hx Number of Living Children 2 AB spontaneous 0 Past Pregnancies Del. Date GA/Weeks # Preg Succ Route Wgt Sex Labor Lgth Anesth [facility]ia [facility] 06/04/20 41 No Yes vaginal 3810.176 g Male 20 hrs 16 min [facility] [place] 11/10/22 40 No Yes vaginal Male 19hrs 11min May porras CNM Delivery Date: 06/04/20 Last Updated by: Farhana Wall spont labor, unmedicated, used tub, high BP during labor, 2nd degree repaired by Dr. Renteria in room. Delivery Date: 11/10/22 Last Updated by: Hetal Mcgowan, LILA Santillan; SROM/PROM, pitocin augmentation; 2nd degree laceration,repaired Vital Signs and Lab Results Vital Signs Most Recent Vital Signs in EMR: Most Recent Vital Signs Temp Pulse Resp BP Pulse Ox 37 C 78 18 129/72 99 03/07/23 13:15 03/07/23 13:15 03/07/23 13:15 03/07/23 13:15 03/07/23 13:15 Lab Results 03/07/23 11:05 03/07/23 11:05 Blood Type / Crossmatch: 2 No Data to Display Complete Blood Count: 2 White Blood Count 6.83 10^3/uL (4.4-10.8) 03/07/23 11:05 Red Blood Count 4.77 10^6/uL (3.93-5.22) 03/07/23 11:05 Hemoglobin 13.2 g/dL (11.2-15.7) 03/07/23 11:05 Hematocrit 39.0 % (36.0-46.0) 03/07/23 11:05 Platelet Count 232 10^3/uL (130-400) 03/07/23 11:05 Complete Metabolic Panel: 2 Sodium 141 mmol/L (136-145) 03/07/23 11:05 Potassium 3.6 mmol/L (3.5-5.1) 03/07/23 11:05 Chloride 104 mmol/L (98-107) 03/07/23 11:05 Carbon Dioxide 28.0 mmol/L (21.0-32.0) 03/07/23 11:05 BUN 14 mg/dL (7-18) 03/07/23 11:05 Creatinine 0.8 mg/dL (0.55-1.02) 03/07/23 11:05 Est GFR (CKD-EPI 2020) 104.80 (mL/min/1.73m2) 03/07/23 11:05 Magnesium 2.0 mg/dL (1.8-2.4) 03/07/23 11:05 Calcium 9.2 mg/dL (8.5-10.1) 03/07/23 11:05 Albumin 4.1 g/dL (3.4-5.0) 03/07/23 11:05 Glucose 93 mg/dL (74-106) 03/07/23 11:05 Liver Function Panel: 2 Alanine Aminotransferase (ALT/SGPT) 20 U/L (14-59) 03/07/23 11: 05 Aspartate Amino Transf (AST/SGOT) 12 U/L (15-37) L 03/07/23 11: 05 Coagulation Panel: 2 No Data to Display Cardiac Panel: 2 No Data to Display Arterial Blood Gas: 2 No Data to Display Venous Blood Gas: 2 No Data to Display Pancreas Panel: 2 Lipase 41 U/L (16-77) 03/07/23 11:05 Thyroid Panel: 2 No Data to Display Infectious Disease: 2 No Data to Display Blood Cultures: 2 No Data to Display Toxicology Panel: 2 No Data to Display Panel: 2 Urine HCG, Qualitative Negative 03/07/23 09:20 Anesthesia Assessment and Plan Anesthesia History Personal History: No History of Anesthesia Complications Family History: Family History Unknown Exercise Tolerance Exercise Tolerance: Metabolic Equivalents>4 Pertinent Negatives Pertinent Negatives: No Symptoms of GERD, No Major Cardiovascular Symptoms or Complaints and No Major Pulmonary Symptoms or Complaints Cardiac & Pulmonary Exam Cardiac Exam: Normal S1/S2 Heart Sounds Pulmonary Exam: Clear Bilateral Breath Sounds Implantable Cardiac Device Does patient have a Pacemaker or an ICD?: No Airway Exam Known Difficult Airway: No Mallampati Class: 2 Mouth Opening: Normal (> 3cm) Thyromental Distance: Greater than 3 cm Neck Range of Motion: Full ROM Neck Circumference: Normal Teeth Condition: Normal Dentition ASA Classification ASA Score: ASA 2 Emergency Case?: Yes NPO Status NPO Status: NPO Clears >2 hours, Solids >8 hours Status Status: Negative HCG Anesthesia Plan Resuscitation Status: Full Code Anesthesia Technique: General Anesthesia Airway Planned: Endotracheal Tube Monitors Used: Standard Monitors and SedLine
[2023-03-07] MEDS: Celecoxib 200 MG CAP PO (15:02)
[2023-03-07] MEDS: Normal Saline Flush 10 ML SYR IVP (15:03)
[2023-03-07] MEDS: Acetaminophen 500 MG TAB 1000 MG PO (15:03)
[2023-03-07] MEDS: Gabapentin 300 MG CAP 600 MG PO (15:03)
[2023-03-07] MEDS: PIPERACILLIN/TAZO 3.375 GM in Normal Saline 50 ML IVPB (15:06)
[2023-03-07] MEDS: Bupivacaine 0.25% Pres-Free 30 ML VIAL (16:00)
--- NOTE | 2023-03-07 16:13 | APP_PTH ---
PATIENT: Huma Rodriguez LOC: [facility] U#:[id number] AGE/SX: 23/F ROOM: RE03/07/[address]: Zohaib Garcia MD : [id number] BED: DIS: 03/07/2023 SPEC #: [id number] RECD: 03/07/23 17:51 STATUS: MERVAT REArnaldo #: [id number] RUSTY: 03/07/23 16:[address]: Zohaib Garcia DEPT: Surgical Specimen RECD BY: Veronika Quijano ENTERED: 03/07/23 17:51 SP TYPE: Appendix OTHR DR: No Local Tissues: 1 - APPENDIX NOT INCIDENTAL Procedures: GROSS AND MICRO LEVEL 3 Comments: [id number]
--- NOTE | 2023-03-07 16:21 | W.PM.OP ---
Date of service: 03/07/23 Time of Service: 16:21 Operative Note Operative Note DATE OF PROCEDURE: 03/07/23 PRE-OP DIAGNOSIS: Acute appendicitis POST-OP DIAGNOSIS: same PROCEDURE: Laparoscopic appendectomy SURGEON: Zohaib Garcia SUPERVISOR [employer] DEPARTMENT: Ariel Delacruz ANESTHESIA TYPE: Local By Surgeon and General LMA/ETT Refer to Anesthesia Record ESTIMATED BLOOD LOSS: 25 PATHOLOGY: other (Appendix) COMPLICATIONS: None Patient was transported to: PACU Patient's condition: stable Indications: Huma is a 23-year-old woman with acute onset of abdominal pain 3 days ago. She came to the ED and underwent CT of the abdomen and pelvis that demonstrated acute appendicitis. Findings: Acute appendicitis Procedure Description: After the induction of general anesthesia, I prepped and draped the anterior abdominal wall in the usual fashion. Next, I made an umbilical incision. Using a 5 mm optical trocar, I entered the peritoneal cavity under the direct vision of the laparoscope. Next, I placed another 5 mm port in the left lower quadrant and exchanged the camera to upsize the umbilical port to a 12 mm. Once this was complete, I placed another 5 mm port in the suprapubic position. I surveyed the peritoneal cavity. There was no evidence of any traumatic injury. I then moved the scope into the left lower quadrant, and positioned the patient with some Trendelenburg and left side down. I started by examining the area of the right lower quadrant. I reflected the greater omentum cephalad and identified the terminal ileum. I traced this to the insertion at the cecum and then identified the base of the appendix at the confluence of the cecal tenia. Next, I mobilized the appendix which did appear acutely inflamed. The tip tracked lateral along the right anterior abdominal sidewall. Adhesions were carefully dissected the appendix from the base of the cecum. I then used sequential firings of the LigaSure to divide the mesoappendix. Once this was complete I divided the appendix from the cecum at its base with a JANELLE stapler. I placed the appendix into an Endo Catch bag and removed through the umbilical port site. I examined the surgical field. The staple line looked fine. There was no contamination or spillage and the surgical field was hemostatic. I then removed the port sites under the vision the laparoscope and closed the umbilical fascia with 0 Vicryl stitches. Finally, irrigated the skin and approximated the dermis with subcuticular absorbable suture.
--- NOTE | 2023-03-07 16:37 | DSE_ITS ---
Date of service: 03/07/23 Time of Service: 16:37 DS: Diagnosis Discharge Diagnosis (1) Acute appendicitis: Status: Acute Asessment and Plan: Status post laparoscopic appendectomy. Follow-up in my office 10 to 14 days Discharge Plan Disposition Patient Disposition: Home Condition: Good Discharge Details Reason For Visit: Abd pain Attending Provider: Zohaib Garcia Primary Care Provider: No,Local Home Meds and New Rx's Prescriptions: New tramadol 50 mg tablet 50 mg PO Q8H PRNQty: 12 0RF Rx Instructions: Take 1 tablet by mouth up to every 8 hours if needed for severe pain. Continued norethindrone (contraceptive) 0.35 mg tablet 0.35 mg PO DAILY Qty: 84 3RF Discharge Instructions Instructions: Laparoscopic Appendectomy (DC) Additional Instructions: 1. Resume all of your regular medications. 2. Use heating pads and ice packs as needed over the incision sites to help with comfort. 3. Okay to use tylenol and ibuprofen over the counter as needed. You should use these [id number], alternating them for 48 hours. Use tramadol as prescribed for more intense pain 4. Leave bandages in place for 24 hours, then remove. 5. Shower with warm soapy water. Pat dry. Use a bandaid if needed to protect your clothing. 6. No soaking or tub baths until I see you in the office. 7. No heavy lifting until I see you in the office. 8. Call the office (or go directly to the emergency room after hours) if you notice any of the following: Develop chills (warm to touch), or if you have a thermometer and your temperature is above 101 Difficulty breathing or difficultly swallowing Persistent vomiting Any bleeding ? exceeding one tablespoon 6. Call your physician if the site where your intravenous was started becomes red, swollen, painful, and warm to touch. Referrals: Zohaib Garcia MD [ [facility] STAFF PHYSICIAN] - (Follow-up in my office in 1 to 2 weeks) Activity:: Activity as Tolerated Remove Dressings/Wound Care:: 24 hours Shower/Bathe:: 24 hours Diet:: As Tolerated DS: Summary Time Spent with Patient providing and/or coordinating discharge services: Greater than 30 minutes Status at Discharge Functional status at discharge: independent ambulation Overall status at discharge: patient is progressing back to baseline Mental Status: mental status grossly normal Speech and Movement: speech and movement normal Mood: congruent mood Affect: normal affect Quality:SDOH Health Related Social Needs: No Data to Display Exam Psych Mental Status: mental status grossly normal Speech and Movement: speech and movement normal Mood: congruent mood Affect: normal affect DS: Data Vitals/I&O Vitals and I&O: Vital Signs Temperature 98.6 F 03/07/23 13:15 Temperature Source Skin 03/07/23 10:00 Pulse 78 03/07/23 13:15 Pulse Rhythm Regular 03/07/23 13:15 Respiratory Rate 18 03/07/23 13:15 Respiratory Effort Normal, Non-Labored 03/07/23 10:03 Respiratory Depth Normal 03/07/23 13:15 Blood Pressure 129/72 03/07/23 13:15 Blood Pressure Position Sitting 03/07/23 10:00 Pulse Oximetry 99 03/07/23 13:15 Oxygen Delivery Method Room Air 03/07/23 13:15 Oxygen Flow Rate 0 03/07/23 13:15 Pain Level 7 03/07/23 13:15 Intake & Output 03/06/23 03/07/23 03/07/23 23:59 11:59 23:59 Intake Total 186.667 176.667 / 186.667 Balance 186.667 176.667 / 186.667 Weight 130 lb 129 lb 13.636 oz Intake: IV 186.667 176.667 / 186.667 Other: Urine Color Pale Urine Appearance Clear Data Completed and Pending Labs on day of discharge: Labs from last 24 hours 03/07/23 11:05 WBC 6.83 RBC 4.77 Hgb 13.2 Hct 39.0 MCV 82 MCH 27.7 MCHC 33.8 RDW 13.2 Plt Count 232 MPV 10.2 Immature Gran % 0.1 Neutrophils % 56.8 Lymphocytes % 36.3 Monocytes % 5.3 Eosinophils % 1.2 Basophils % 0.3 Nucleated RBC % 0.0 Absolute Neutrophils 3.88 Absolute Lymphocytes 2.48 Absolute Monocytes 0.36 Absolute Eosinophils 0.08 Absolute Basophils 0.02 Sodium 141 Potassium 3.6 Chloride 104 Carbon Dioxide 28.0 Anion Gap 9.0 BUN 14 Creatinine 0.8 Est GFR (CKD-EPI 2020) 104.80 Glucose 93 Calcium 9.2 Magnesium 2.0 Total Bilirubin 0.4 AST 12 L ALT 20 Alkaline Phosphatase 81 Total Protein 7.4 Albumin 4.1 Lipase 41 PFSH All Active Problems Acute appendicitis (Acute) Lactating mother (Acute) care following vaginal delivery (Acute) History of nicotine vaping (Acute) (Acute) Anxiety (Chronic) ASCUS with positive high risk HPV (Acute) Medical History PROM (premature rupture of membranes) History of migraine Anemia affecting History of gestational hypertension during spontaneous labor, resolved Nausea and vomiting in Family History Mother No problems noted. Father No problems noted. Other Heart disease Grandparent Hyperlipidemia Social History Smoking/Tobacco Use Status: Current every day Tobacco Type: e-cigarettes Second Hand Exposure: Yes (reviewed fact smoking outside is no longer a safe practice to deter risks.) Counseling given: provider counseling Smoking risk assessment performed?: Yes Alcohol Intake: never Drug use: Never Counseling given: No Housing: house Female Reproductive History Menstrual control method: none History History 2 Para 1 Hx # Term Pregnancies 2 Multiple births 0 Hx # Pregnancies 0 Ectopic pregnancies 0 AB induced 0 Hx Number of Living Children 2 AB spontaneous 0 Past Pregnancies Del. Date GA/Weeks # Preg Succ Route Wgt Sex Labor Lgth Anesth esia Location [facility] 06/04/20 41 No Yes vaginal 8 lb 6.4 oz Male 20 hrs 16 min [facility] [place] 11/10/22 40 No Yes vaginal Male 19hrs 11min May porras CNM Delivery Date: 06/04/20 Last Updated by: Farhana Wall spont labor, unmedicated, used tub, high BP during labor, 2nd degree repaired by Dr. Renteria in room. Delivery Date: 11/10/22 Last Updated by: LILA Courtney; SROM/PROM, pitocin augmentation; 2nd degree laceration,repaired Time Spent with Patient Time Spent with Patient: 45-69 minutes Time was spent: preparing to see the patient(eg.review tests), counseling the patient and care coordination
[2023-03-07] MEDS: Ketorolac 15 MG/ML VIAL (17:10)
[2023-03-07] MEDS: traMADol 50 MG TAB PO (18:18)
--- NOTE | 2023-03-07 18:51 | W.ANESPOSTOP ---
Postoperative Evaluation Date, Time and Location Date Performed: 03/07/23 Time Performed: 18:20 Patient Location: Day Surgery Unit Vital Signs Most Recent Imported Vital Signs: Most Recent Vital Signs Temp Pulse Resp BP Pulse Ox 36.6 C 48 L 16 116/75 97 03/07/23 18:30 03/07/23 18:30 03/07/23 18:30 03/07/23 18:30 03/07/23 18:30 Pain Score Most Recent Pain Score: Most Recent Pain Score Pain Level 6 03/07/23 17:33 Assessment Mental Status: Awake (Alert & Oriented to Patient Baseline) Airway and Respiratory Function: Patent airway with normal (patient baseline) respiratory exam Cardiovascular Function: Hemodynamically Stable Hydration Status: Adequately Hydrated Nausea & Vomiting: No Nausea or Vomiting Pain: Pt. Denies Any Pain Peripheral Nerve Block: Patient did not receive a nerve block
== END 2023-03-07 18:38 | disposition home or self-care (01) ==
LOC: ER 12:37 → SUR 13:24
PROVIDERS: Emergency Provider Nurse Practitioner Family; Visit Provider Surgery
PROC: 0DTJ4ZZ Resection of Appendix, Percutaneous Endoscopic Approach (ICD-10-PCS; CPT 44970; principal; 2023-03-07 14:45)
DX: K35.80 Unspecified acute appendicitis (principal)
CPT/HCPCS: 44970; 80053; 83690; 74177; 83735; 85025; 88304; J0665; J1100; J1805; J1885; J2001; J2250; J2405; J2543; J2704; J3010; J3490